=== PATIENT | female | born 1930 | race Caucasian/White ===

== ENCOUNTER → 2017-03-17 | Outpatient (CLI) | payer OTHER ==
[~2017-03-17] MED LIST: BROM0.0911 OPR; CHOL20009 PO; DTRSR4 PO; ESCI1TAB10 PO; LORA-741 PO; NRN600 PO; PARO20TA PO; PRED1SUS OPR; PRLSR20 PO; SIMV20TA2 PO; TRAZ100T29 PO; TRAZ50TA35 PO
[2017-03-17 17:52] LABS: HEMATOCRIT 47.8 % (37-47); MEAN CELL VOLUME 93.5 fL (80-100); MEAN CORPUSCULAR HEMOGLOBIN 32.3 pg (25-34); MEAN CORPUSCULAR HGB CONC 34.5 g/dl (32-36); MEAN PLATELET VOLUME 9.9 fL (7.4-10.4); PLATELET COUNT 200 K/uL (130-400); RED BLOOD COUNT 5.11 M/uL (4.2-5.4); WHITE BLOOD COUNT 8.02 K/uL (4.8-10.8)
[2017-03-17 17:59] LABS: URINE APPEARANCE TURBID (CLEAR); URINE BILIRUBIN NEG (NEG); URINE COLOR YELLOW; URINE EPITHELIAL CELL AUTO >30 /lpf (0-5); URINE NITRITE NEG (NEG); URINE PH 5.5 (4.5-7.5); URINE SPECIFIC GRAVITY 1.021 (1.000-1.030); UROBILINOGEN NEG (NEG)
[2017-03-17 18:05] LABS: MANUAL MICROSCOPIC REQUIRED? NO; REVIEW REQ? YES
[2017-03-17 18:13] LABS: BLOOD UREA NITROGEN 29 mg/dl (7-18); BUN/CREATININE RATIO 19.6 (10-20); CALCIUM 9.2 mg/dl (8.5-10.1); CARBON DIOXIDE 29 mmol/L (21-32); CHLORIDE 106 mmol/L (98-107); GLUCOSE 112 mg/dl (70-99); POTASSIUM 4.7 mmol/L (3.5-5.1); SODIUM 139 mmol/L (136-145)
[2017-03-17 18:33] LABS: URINE PROTIEN/CREAT RATIO 0.1 (0-0.2)
== END | disposition home or self-care (01) ==
LOC: C.LABMFLN 11:21
PROVIDERS: ATTEND Internal Medicine Nephrology
DX: I10 Essential (primary) hypertension (principal); N18.3 Chronic kidney disease, stage 3 (moderate); N25.81 Secondary hyperparathyroidism of renal origin; E55.9 Vitamin D deficiency, unspecified

== ENCOUNTER → 2017-05-17 | Day surgery (SDC) | payer OTHER ==
[2017-04-21 13:23] VITALS: Ht 162.6 cm; Wt 84.1 kg
[~2017-05-17] VITALS: Ht 162.6 cm; Wt 84.1 kg
[~2017-05-17] MED LIST changes: +ACETAMINOPHEN 325 MG TAB PO PRN; +ATROPINE SULFATE 0.1 MG/ML 5ML SYR IV PRN; +BRIMONIDINE TART 0.2% OP SOLN PER DROP CHARGE ONE; +EpINEphrine INJ 1MG/ML AMP 1 MG/ML AMP ONE; +LACTATED RINGER'S 1000ML 500 ML IV SCH; +LIDOCAINE 4% OP SOLN DROP CHARGE ONE; +LIDOCAINE 4% OP SOLN DROP CHARGE OPR SCH; +LIDOCAINE HCL 1% MPF 2 ML VIAL ONE; -LORA-741 PO; +MIDAZOLAM HCL 1 MG/ML 2ML VIAL ONE; +MOXIFLOXACIN OPH SOLN PER DROP CHARGE ONE; -PARO20TA PO; +POVIDONE-IODINE OP SOLN 30 ML BTL ONE; +PROPARACAINE 0.5% OP SOLN PER DROP CHARGE OPR SCH; -SIMV20TA2 PO; +TOBRAMYCIN/DEXAMETHASONE OPH OINT PER APPLN CHARGE ONE
[2017-05-17] MEDS: PHENYLEPHRINE HCL 2.5% OP SOLN PER DROP CHARGE OPR SCH ×2 (06:51→06:57)
--- NOTE | 2017-05-17 06:51 | History & Physical Bridge - SC ---
H&P Re-Evaluation Bridge Note: I have examined the patient, reviewed the History & Physical and in the interval since the performance of the History & Physical I have noted the following changes of clinical significance: No changes noted
[2017-05-17] MEDS: TROPICAMIDE 1% OP SOLN PER DROP CHARGE OPR SCH ×2 (06:52→06:57)
[2017-05-17] MEDS: CYCLOPENTOLATE HCL 1% OP SOLN PER DROP CHARGE OPR SCH ×2 (06:53→06:58)
[2017-05-17] MEDS: KETOROLAC 0.5% OP SOLN PER DROP CHARGE OPR SCH ×2 (06:54→06:59)
[2017-05-17] MEDS: MOXIFLOXACIN OPH SOLN PER DROP CHARGE OPR SCH ×2 (06:55→07:05)
--- NOTE | 2017-05-17 08:28 | Discharge Instructions-SurgCtr ---
Discharge Instructions Date of Service May 17, 2017. Visit Reason for Visit: Cataract Right Eye Discharge Discharge Diagnosis / Problem: cataract right eye Discharge Goals Goal(s): Improve function Activity Recommendations Activity Limitations: per Instructions/Follow-up section Lifting Limitations: no more than 5 pounds Anesthesia . Post Anesthesia Instructions: If you have had General Anesthesia or IV Sedation: * Do not drive today. * Resume driving when surgeon permits. * Do not make important decisions or sign legal documents today. * Call surgeon for: 1. Temperature elevations greater than 101 degrees F. 2. Uncontrollable pain. 3. Excessive bleeding. 4. Persistent nausea and vomiting. 5. Medication intolerance (nausea, vomiting or rash). * For nausea and vomiting use only clear liquids such as: tea, soda, bouillon until nausea subsides, then gradually increase diet as tolerated. * If you have any concerns or questions, call your surgeon's office. If physician is unavailable and it is an emergency, call 911 or go to the nearest emergency room. . Instructions / Follow-Up Instructions / Follow-Up ACTIVITY RECOMMENDATIONS: * Light activities * You may walk outside, read, watch television. * Mild irritation and blurred vision are common for the first few days, redness around the white part of the eye is common. MEDICATIONS: Resume previous medications unless instructed otherwise by your surgeon. Eye drops (today and tomorrow): Cipro - one drop in operative eye every 2 hours while awake Prednisolone 1% - one drop in operative eye every 2 hours while awake Bromfenac - one drop in operative eye once daily SPECIAL CARE INSTRUCTIONS: * If any problems or concerns, please call Dr. Ch's office at . * Keep plastic shield taped over eye to sleep at night. * Keep plastic shield taped over eye except to administer eye drops. * Keep plastic shield on until office visit the following day. FOLLOW UP VISIT: Follow-up with Dr. Ch in the [place] office as scheduled. If not already scheduled, please call the office at . Diet Recommendations Home Diet: resume previous diet Procedures Procedures Performed: Right Eye Cataract Phacoemulsification With Intraocular Lens Implant Pending Studies Studies pending at discharge: no Medical Emergencies . Who to Call and When: Medical Emergencies: If at any time you feel your situation is an emergency, please call 911 immediately. . Non-Emergent Contact Non-Emergency issues call your: Parallel Computing Software Engineer . . "Provider Documentation" section prepared by Kev Ch. .
--- NOTE | 2017-05-17 08:33 | [facility] Operative Report ---
Operative Report Operative Date May 17, 2017. Pre-Operative Diagnosis Right Eye Cataract Post-Operative Diagnosis Same Procedure(s) Performed Right Eye Cataract Phacoemulsification With Intraocular Lens Implant Surgeon Dr. Ch Production Control Expediter Surgeon(s) None Estimated Blood Loss None Findings cataract with phacodenesis/ pseudoexfoliation right eye Specimens None Drains none Anesthesia local with sedation Complication(s) None Disposition Recovery Room / PACU Implants B&L LI61AO 21.0 and ULYSSES [id number] CTR Indications decreased vision right eye Description of Procedure After informed consent was obtained in the holding area the patient was wheeled back to the operating room where cardiac monitoring leads and oxygen by nasal cannula was administered by Anesthesia. Gentle IV sedation was given, and the patient's right eye was prepped and draped in usual sterile fashion. A wire lid speculum was placed into the right eye and the operating microscope was swung into position. Using 0.12 forceps and a Supersharp blade a paracentesis port was made 3 o'clock hours away from the 9 o'clock position of the patient's right eye. 1% non-preserved Lidocaine was then injected into the anterior chamber for anesthesia. A 2.2 mm keratotome blade was then used to make a shelved clear corneal incision at the 9 o'clock position of the right eye. Amvisc was injected into the anterior chamber and a cystotome and Utrata forceps were used to perform a curvilinear capsulorrhexis. Phacodenesis most severe, between the 2 and 6 o'clock position was noted. BSS on a hydrodissection cannula was used to hydrodissect the lens nucleus away from the capsular bag. The phacoemulsification handpiece was then used in a stop and chop fashion to remove the lens nucleus. The irrigation and aspiration handpiece was then attempted to remove the residual cortical material. Phacodenesis was too severe to allow full cortical cleanup. Amvisc was injected into the capsular bag and anterior chamber and an ULYSSES [id number] CTR was injected into the bag to help stabilize it. A Bausch & Lomb LI61AO 21.0 Diopter intraocular lens was injected into the sulcus with the optic being captured by the anterior capsular opening. Irrigation and aspiration handpiece was used to remove the residual viscoelastic material. The wounds were hydrated and noted to be watertight. The wire lid speculum was removed from the eye. Vigamox, Brimonidine, and TobraDex ointment were placed on the eye and it was shielded. It should be noted that EndoCoat was used extensively during the case to protect the cornea endothelium. DISPOSITION: The patient tolerated the procedure well and was wheeled to the post anesthesia care unit in stable condition. I attest to the content of the Intraoperative Record and any orders documented therein. Any exceptions are noted below. I attest to the content of the Intraoperative Record and any orders documented therein. Any exceptions are noted below.
--- NOTE | 2017-05-17 08:56 | Anesthesia Progress Nt - [facility] ---
Anesthesia Post Op Note Date & Time May 17, 2017 at 08:56 Vital Signs Pain Intensity: 0 Vital Signs Past 12 Hours Date Time Temp Pulse Resp B/P (MAP) Pulse Ox O2 Delivery O2 Flow Rate FiO2 05/17/17 08:28 36.1 80 16 152/79 (103) 95 Room Air 05/17/17 06:42 36.5 81 16 130/79 (96) 94 Room Air Notes Mental Status: alert / awake / arousable, participated in evaluation Pt Amnestic to Procedure: Yes Nausea / Vomiting: adequately controlled Pain: adequately controlled Airway Patency, RR, SpO2: stable & adequate BP & HR: stable & adequate Hydration State: stable & adequate Anesthetic Complications: no major complications apparent
[2017-05-17 08:58] VITALS: BP 145/80; PULSE 80; O2SAT 94
== END | disposition home or self-care (01) ==
LOC: X.SURG 06:27
PROVIDERS: ATTEND Ophthalmology
DX: H25.11 Age-related nuclear cataract, right eye (principal); F17.210 Nicotine dependence, cigarettes, uncomplicated; Z79.899 Other long term (current) drug therapy

== ENCOUNTER → 2017-05-31 | Day surgery (SDC) | payer OTHER ==
[2017-05-28 14:22] VITALS: Ht 162.6 cm; Wt 84.1 kg
[~2017-05-31] VITALS: Ht 162.6 cm; Wt 84.1 kg
[~2017-05-31] MED LIST changes: +500ML BSS 0.3ML EPI 1:1000PF IRRIG ONE; +AMVISC PLUS 0.8ML SYRINGE INT OCU ONE; +BSS FLUSH ONE; +ENDOCOAT 0.85ML SYRINGE INT OCU ONE; +EpHEDrine SULFATE INJ 50 MG/ML AMP IV PRN; +LIDOCAINE 4% OP SOLN DROP CHARGE OPL SCH; -LIDOCAINE 4% OP SOLN DROP CHARGE OPR SCH; +ONDANSETRON INJ 2 MG/ML 2 ML VIAL IV PRN; +PROPARACAINE 0.5% OP SOLN PER DROP CHARGE OPL SCH; -PROPARACAINE 0.5% OP SOLN PER DROP CHARGE OPR SCH
[2017-05-31] MEDS: PHENYLEPHRINE HCL 2.5% OP SOLN PER DROP CHARGE OPL SCH ×2 (09:28→09:33)
[2017-05-31] MEDS: TROPICAMIDE 1% OP SOLN PER DROP CHARGE OPL SCH ×2 (09:29→09:34)
[2017-05-31] MEDS: CYCLOPENTOLATE HCL 1% OP SOLN PER DROP CHARGE OPL SCH ×2 (09:30→09:35)
[2017-05-31] MEDS: KETOROLAC 0.5% OP SOLN PER DROP CHARGE OPL SCH ×2 (09:30→09:35)
[2017-05-31] MEDS: MOXIFLOXACIN OPH SOLN PER DROP CHARGE OPL SCH ×2 (09:31→09:40)
--- NOTE | 2017-05-31 10:54 | Discharge Instructions-SurgCtr ---
Discharge Instructions Date of Service May 31, 2017. Visit Reason for Visit: Cataract Left Eye Discharge Discharge Diagnosis / Problem: cataract left eye Discharge Goals Goal(s): Improve function Activity Recommendations Activity Limitations: per Instructions/Follow-up section Lifting Limitations: no more than 5 pounds Anesthesia . Post Anesthesia Instructions: If you have had General Anesthesia or IV Sedation: * Do not drive today. * Resume driving when surgeon permits. * Do not make important decisions or sign legal documents today. * Call surgeon for: 1. Temperature elevations greater than 101 degrees F. 2. Uncontrollable pain. 3. Excessive bleeding. 4. Persistent nausea and vomiting. 5. Medication intolerance (nausea, vomiting or rash). * For nausea and vomiting use only clear liquids such as: tea, soda, bouillon until nausea subsides, then gradually increase diet as tolerated. * If you have any concerns or questions, call your surgeon's office. If physician is unavailable and it is an emergency, call 911 or go to the nearest emergency room. . Instructions / Follow-Up Instructions / Follow-Up ACTIVITY RECOMMENDATIONS: * Light activities * You may walk outside, read, watch television. * Mild irritation and blurred vision are common for the first few days, redness around the white part of the eye is common. MEDICATIONS: Resume previous medications unless instructed otherwise by your surgeon. Eye drops (today and tomorrow): Cipro - one drop in operative eye every 2 hours while awake Prednisolone 1% - one drop in operative eye every 2 hours while awake Bromfenac - one drop in operative eye once daily SPECIAL CARE INSTRUCTIONS: * If any problems or concerns, please call Dr. Ch's office at . * Keep plastic shield taped over eye to sleep at night. * Keep plastic shield taped over eye except to administer eye drops. * Keep plastic shield on until office visit the following day. FOLLOW UP VISIT: Follow-up with Dr. Ch in the [place] office as scheduled. If not already scheduled, please call the office at . Diet Recommendations Home Diet: resume previous diet Procedures Procedures Performed: Left Cataract Phacoemulsification With Intraocular Lens Implant Pending Studies Studies pending at discharge: no Medical Emergencies . Who to Call and When: Medical Emergencies: If at any time you feel your situation is an emergency, please call 911 immediately. . Non-Emergent Contact Non-Emergency issues call your: Technical Services Assistant . . "Provider Documentation" section prepared by Kev Ch. .
[2017-05-31 10:55] VITALS: TEMP 36.3
--- NOTE | 2017-05-31 10:55 | [facility] Operative Report ---
Operative Report Operative Date May 31, 2017. Pre-Operative Diagnosis Left Eye Cataract Post-Operative Diagnosis Same Procedure(s) Performed Left Cataract Phacoemulsification With Intraocular Lens Implant Surgeon Dr Ch Superintendent Board Mill Surgeon(s) None Estimated Blood Loss 0ml Findings cataract left eye Fluids (cc crystalloids) see anesthesia record Specimens None Drains none Anesthesia local with sedation Complication(s) None Disposition Recovery Room / PACU Implants [id number] 22.5 Indications decreased vision left eye Description of Procedure After informed consent was obtained in the holding area the patient was wheeled back to the operating room where cardiac monitoring leads and oxygen by nasal cannula was administered by Anesthesia. Gentle IV sedation was given, and the patient's left eye was prepped and draped in usual sterile fashion. A wire lid speculum was placed into the left eye and the operating microscope was swung into position. Using 0.12 forceps and a Supersharp blade a paracentesis port was made 3 o'clock hours away from the 3 o'clock position of the patient's left eye. 1% non-preserved Lidocaine was then injected into the anterior chamber for anesthesia. A 2.2 mm keratotome blade was then used to make a shelved clear corneal incision at the 3 o'clock position of the left eye. Amvisc was injected into the anterior chamber and a cystotome and Utrata forceps were used to perform a curvilinear capsulorrhexis. BSS on a hydrodissection cannula was used to hydrodissect the lens nucleus away from the capsular bag. The phacoemulsification handpiece was then used in a stop and chop fashion to remove the lens nucleus. The irrigation and aspiration handpiece was then used to remove the residual cortical material. Amvisc was injected into the capsular bag and anterior chamber and a Bausch & Lomb MX60 22.5 Diopter intraocular lens was injected into the capsular bag. Irrigation and aspiration handpiece was used to remove the residual viscoelastic material. The wounds were hydrated and noted to be watertight. The wire lid speculum was removed from the eye. Vigamox, Brimonidine, and TobraDex ointment were placed on the eye and it was shielded. It should be noted that EndoCoat was used extensively during the case to protect the cornea endothelium. DISPOSITION: The patient tolerated the procedure well and was wheeled to the post anesthesia care unit in stable condition. I attest to the content of the Intraoperative Record and any orders documented therein. Any exceptions are noted below. I attest to the content of the Intraoperative Record and any orders documented therein. Any exceptions are noted below.
[2017-05-31 11:22] VITALS: BP 129/83; PULSE 70; O2SAT 96
--- NOTE | 2017-05-31 11:29 | Anesthesia Progress Nt - [facility] ---
Anesthesia Post Op Note Date & Time May 31, 2017 at 11:28 Vital Signs Pain Intensity: 0 Vital Signs Past 12 Hours Date Time Temp Pulse Resp B/P (MAP) Pulse Ox O2 Delivery O2 Flow Rate FiO2 05/31/17 11:22 70 16 129/83 (98) 96 Room Air 05/31/17 10:55 36.3 78 16 120/79 (93) 96 Room Air 05/31/17 09:15 36.3 76 22 124/85 (98) 92 Room Air Notes Mental Status: alert / awake / arousable, participated in evaluation Pt Amnestic to Procedure: Yes Nausea / Vomiting: adequately controlled Pain: adequately controlled Airway Patency, RR, SpO2: stable & adequate BP & HR: stable & adequate Hydration State: stable & adequate Anesthetic Complications: no major complications apparent
== END | disposition home or self-care (01) ==
LOC: X.SURG 08:48
PROVIDERS: ATTEND Ophthalmology
DX: H25.12 Age-related nuclear cataract, left eye (principal); M19.90 Unspecified osteoarthritis, unspecified site; Z87.891 Personal history of nicotine dependence; N18.9 Chronic kidney disease, unspecified; K25.9 Gastric ulcer, unspecified as acute or chronic, without hemorrhage or perforation

== ENCOUNTER → 2017-09-20 | Outpatient (CLI) | payer OTHER ==
[~2017-09-20] MED LIST changes: -500ML BSS 0.3ML EPI 1:1000PF IRRIG ONE; -ACETAMINOPHEN 325 MG TAB PO PRN; -AMVISC PLUS 0.8ML SYRINGE INT OCU ONE; -ATROPINE SULFATE 0.1 MG/ML 5ML SYR IV PRN; -BRIMONIDINE TART 0.2% OP SOLN PER DROP CHARGE ONE; -BSS FLUSH ONE; -ENDOCOAT 0.85ML SYRINGE INT OCU ONE; -EpHEDrine SULFATE INJ 50 MG/ML AMP IV PRN; -EpINEphrine INJ 1MG/ML AMP 1 MG/ML AMP ONE; -LACTATED RINGER'S 1000ML 500 ML IV SCH; -LIDOCAINE 4% OP SOLN DROP CHARGE ONE; -LIDOCAINE 4% OP SOLN DROP CHARGE OPL SCH; -LIDOCAINE HCL 1% MPF 2 ML VIAL ONE; -MIDAZOLAM HCL 1 MG/ML 2ML VIAL ONE; -MOXIFLOXACIN OPH SOLN PER DROP CHARGE ONE; -ONDANSETRON INJ 2 MG/ML 2 ML VIAL IV PRN; -POVIDONE-IODINE OP SOLN 30 ML BTL ONE; -PROPARACAINE 0.5% OP SOLN PER DROP CHARGE OPL SCH; -TOBRAMYCIN/DEXAMETHASONE OPH OINT PER APPLN CHARGE ONE
[2017-09-20 18:06] LABS: MEAN CELL VOLUME 91.8 fL (80-100); MEAN CORPUSCULAR HEMOGLOBIN 31.7 pg (25-34); MEAN CORPUSCULAR HGB CONC 34.6 g/dl (32-36); PLATELET COUNT 161 K/uL (130-400); RED BLOOD COUNT 5.23 M/uL (4.2-5.4); WHITE BLOOD COUNT 6.98 K/uL (4.8-10.8)
[2017-09-20 18:12] LABS: BLOOD UREA NITROGEN 24 mg/dl (7-18); BUN/CREATININE RATIO 14.5 (10-20); CALCIUM 8.9 mg/dl (8.5-10.1); CARBON DIOXIDE 28 mmol/L (21-32); CHLORIDE 104 mmol/L (98-107); CREATININE 1.63 mg/dl (0.60-1.20); GLUCOSE 117 mg/dl (70-99); PHOSPHORUS 3.1 mg/dl (2.5-4.9); POTASSIUM 4.5 mmol/L (3.5-5.1); SODIUM 141 mmol/L (136-145)
== END | disposition home or self-care (01) ==
LOC: C.LABMFLN 11:28
PROVIDERS: ATTEND Internal Medicine Nephrology
DX: I12.9 Hypertensive chronic kidney disease with stage 1 through stage 4 chronic kidney disease, or unspecified chronic kidney disease (principal); N18.3 Chronic kidney disease, stage 3 (moderate); N25.81 Secondary hyperparathyroidism of renal origin; E55.9 Vitamin D deficiency, unspecified

== ENCOUNTER → 2017-09-21 | Outpatient (CLI) | payer OTHER ==
[2017-09-21 18:04] LABS: URINE APPEARANCE CLOUDY (CLEAR); URINE BILIRUBIN NEG (NEG); URINE COLOR YELLOW; URINE NITRITE NEG (NEG); URINE SPECIFIC GRAVITY 1.018 (1.000-1.030); UROBILINOGEN NEG (NEG)
[2017-09-21 18:12] LABS: URINE PROTIEN/CREAT RATIO 0.2 (0-0.2); URINE TOTAL PROTEIN 17.3 mg/dl (0-11.9)
[2017-09-21 18:14] LABS: MANUAL MICROSCOPIC REQUIRED? NO; REVIEW REQ? NO
== END | disposition home or self-care (01) ==
LOC: C.LABMFLN 16:49
PROVIDERS: ATTEND Internal Medicine Nephrology
DX: I12.9 Hypertensive chronic kidney disease with stage 1 through stage 4 chronic kidney disease, or unspecified chronic kidney disease (principal); N18.3 Chronic kidney disease, stage 3 (moderate); N25.81 Secondary hyperparathyroidism of renal origin; E55.9 Vitamin D deficiency, unspecified

== ENCOUNTER → 2017-10-11 | Outpatient (CLI) | payer OTHER ==
[2017-10-11 18:40] LABS: CHOLESTEROL/HDL RATIO 9.5
== END | disposition home or self-care (01) ==
LOC: C.LABMFLN 14:03
PROVIDERS: ATTEND Physician Assistant
DX: E78.5 Hyperlipidemia, unspecified (principal)

== ENCOUNTER → 2018-01-31 | Outpatient (CLI) | payer OTHER | END | disposition home or self-care (01) | LOC: C.LABMFLN 12:26 | PROVIDERS: ATTEND Physician Assistant | DX: R39.9 Unspecified symptoms and signs involving the genitourinary system (principal) ==

== ENCOUNTER → 2018-02-07 | Outpatient (CLI) | payer OTHER ==
[2018-02-07 18:04] LABS: ALBUMIN 3.2 gm/dl (3.4-5.0); TOTAL PROTEIN 6.9 gm/dl (6.4-8.2)
== END | disposition home or self-care (01) ==
LOC: C.LABMFLN 12:04
PROVIDERS: ATTEND Physician Assistant
DX: E78.5 Hyperlipidemia, unspecified (principal)

== ENCOUNTER → 2018-03-14 | Outpatient (CLI) | payer OTHER ==
[2018-03-14 18:14] LABS: HEMATOCRIT 43.1 % (37-47); HEMOGLOBIN 14.9 g/dL (12.0-16.0); MEAN CELL VOLUME 90.7 fL (80-100); MEAN CORPUSCULAR HEMOGLOBIN 31.4 pg (25-34); MEAN CORPUSCULAR HGB CONC 34.6 g/dl (32-36); MEAN PLATELET VOLUME 10.2 fL (7.4-10.4); PLATELET COUNT 144 K/uL (130-400); RED CELL DISTRIBUTION WIDTH CV 13.5 % (11.5-14.5); RED CELL DISTRIBUTION WIDTH SD 44.8 fL (36.4-46.3); WHITE BLOOD COUNT 6.53 K/uL (4.8-10.8)
[2018-03-14 19:28] LABS: ALBUMIN 3.4 gm/dl (3.4-5.0); BLOOD UREA NITROGEN 28 mg/dl (7-18); CALCIUM 8.5 mg/dl (8.5-10.1); CARBON DIOXIDE 26 mmol/L (21-32); CREATININE 1.68 mg/dl (0.60-1.20); GLUCOSE 100 mg/dl (70-99); PHOSPHORUS 3.4 mg/dl (2.5-4.9); POTASSIUM 4.6 mmol/L (3.5-5.1); SODIUM 138 mmol/L (136-145)
== END | disposition home or self-care (01) ==
LOC: C.LABMFLN 11:56
PROVIDERS: ATTEND Internal Medicine Nephrology
DX: I10 Essential (primary) hypertension (principal); N18.3 Chronic kidney disease, stage 3 (moderate); N25.81 Secondary hyperparathyroidism of renal origin; E55.9 Vitamin D deficiency, unspecified

== ENCOUNTER 2019-11-29 18:44 | Inpatient (IN) ==
[2019-11-29] MEDS ORDERED: ONDANSETRON INJ 2 MG/ML 2 ML VIAL IV PRN (18:48)
[2019-11-29] MEDS ORDERED: ACETAMINOPHEN 325 MG TAB PO PRN (18:48)
[2019-11-29] MEDS ORDERED: POLYETHYLENE (MIRALAX) 17 GM PACK PO PRN (18:48)
[2019-11-29] MEDS ORDERED: TROLAMINE SALICYLATE 10% CRM 255 APPLN/85 GM TUBE EXT PRN (19:40)
[2019-11-29 19:53] LABS: Basophils # (auto) 0.02 K/uL (0-0.2); Basophils % (auto) 0.3 %; Eosinophils % (auto) 1.3 %; Hematocrit (blood only) 41.8 % (37-47); Hemoglobin 14.7 g/dL (12.0-16.0); Immature Granulocytes # (auto) 0.02 K/uL (0.00-0.02); Immature Granulocytes % (auto) 0.3 %; Lymphocytes # (auto) 0.29 K/uL (1.2-3.4); Lymphocytes % (auto) 3.8 %; Mean Corpuscular Hemoglobin 31.7 pg (25-34); Mean Corpuscular Hgb Conc 35.2 g/dL (32-36); Mean Corpuscular Volume 90.3 fL (80-100); Mean Platelet Volume 10.4 fL (7.4-10.4); Monocytes # (auto) 0.34 K/uL (0.11-0.59); Monocytes % (auto) 4.5 %; Neutrophils # (auto) 6.79 K/uL (1.4-6.5); Neutrophils % (auto) 89.8 %; Platelet Count 117 K/uL (130-400); RDW Coefficient of Variation 13.6 % (11.5-14.5); RDW Standard Deviation 44.6 fL (36.4-46.3); Red Blood Count 4.63 M/uL (4.2-5.4); White Blood Count 7.56 K/uL (4.8-10.8)
[2019-11-29 20:04] LABS: INR 1.3 (0.9-1.1); Partial Thromboplastin Ratio 1.1; Partial Thromboplastin Time 28.8 Seconds (21.0-31.0)
[2019-11-29 20:11] LABS: Alanine Aminotransferase 73 U/L (12-78); Albumin Level 3.1 gm/dl (3.4-5.0); Aspartate Aminotransferase 77 U/L (15-37); BUN Creatinine Ratio 14.2 (10-20); Blood Urea Nitrogen 20 mg/dl (7-18); Calcium 8.9 mg/dl (8.5-10.1); Carbon Dioxide 27 mmol/L (21-32); Chloride 106 mmol/L (98-107); Est GFR (African American) 39.1; Est GFR (Non-African American) 33.7; Glucose 129 mg/dl (70-99); Potassium 2.8 mmol/L (3.5-5.1); Sodium 139 mmol/L (136-145)
--- NOTE | 2019-11-29 20:13 | History & Physical Report ---
Date of Service November 29, 2019 Assessment & Plan (1) Biliary stricture: (2) Hyperbilirubinemia: (3) History of biliary stent insertion: (4) History of cholangitis: This is an 89-year-old female who has significant PMH of CKD stage , GERD, depression, anxiety, hyperbilirubinemia, biliary obstruction status post stenting who presents to [facility] as a direct admission from [facility] due to concern for restenosis of biliary stricture and planned ERCP in a.m. Per records reviewed patient last ERCP on 10/07/2019 in which she was diagnosed with acute cholangitis. Findings on ERCP consistent with 1 totally occluded stent from biliary tree, filling defect consistent with stone and sludge, remodeling of the previously noted biliary stricture, 2 biliary stents placed. She was to undergo repeat ERCP on 12/07/2019 to remove stents, but given worsening of symptoms prompted tomorrow. Of further significance initially dx with mass obstructing ERCP in 06/2019 in which initial stents were placed. Attempt to biopsy mass were unsuccessful. Evaluated [facility] and told not surgical candidate due to frail health. Pt directly admitted to PCU [facility] consulted - discussed with Dr. Costa NPO after midnight hold plavix CBC, CMP, Blood cultures, lactic acid, coags pending pt does nto appear septic, she is hemodynamically stable and afebrile No need for antibiotics at this time (5) Hypokalemia: K 2.8 give 40meq KCL x 1 now Krider 10meq x 2 repeat in a.m. (6) Idiopathic hypotension: Continue Florinef (7) CKD (chronic kidney disease) stage 4, GFR 15-29 ml/min: baseline Cr 1.5-1.7 follows [facility] nephro Dr. Abbott (8) Hyperlipidemia: Hold statin for now Await LFTs (9) Acid reflux disease: Continue PPI (10) Depression with anxiety: Continue escitalopram (11) Peripheral neuropathy: Continue gabapentin (12) Leg pain, left: L knee pain add bengay cream no warmth or redness likely arthritic in nature APAP prn (13) Tobacco abuse: pt declines nicotine patch encourage smoking cessation (14) DVT prophylaxis: SCDS/TEDS Disposition: admit to PCU Follow up: PCP Lazara Plummer PA-C upon discharge Pt was seen and examined in collaboration with Dr. Cheek, please see addendum History of Present Illness Chief Complaint: Abdominal pain, nausea and weakness x 1 day. Primary Care Provider: Lazara Plummer PA-C This is an 89-year-old female who has significant PMH of CKD stage IIIb-, GERD, depression, anxiety, hyperbilirubinemia, biliary obstruction status post stenting who presents to [facility] as a direct admission from [facility] due to concern for restenosis of biliary stricture and planned ERCP in a.m. Daughter was at bedside. Yesterday she developed abdominal pain, left upper quadrant and right upper quadrant, constant that resolved on own. Today she was nauseous, weak and daughter felt like she was starting to turn, "yellow," therefore, she called Dr. Costa. Patient was planned to have ERCP with stent exchange at end of month, but given current complaints and concerns he wanted patient directly admitted for ERCP in a.m. Currently she is lying in bed and complains of left knee pain" jumping," that is been off and on for years. She no longer has abdominal pain or nausea. She does elicit to a dry cough that is started today. She denies any fever, chills, sweats, headache, lightheadedness, dizziness, chest pain, shortness of breath, FLOREZ, palpitations, emesis, abdominal pain, diarrhea, change in bowel or urinary habits. She is currently a 1 pack/day smoker. She lives alone. Overall appetite has been diminished and 5lb weight loss in past month has been noted. Allergies Allergy/AdvReac Type Severity Reaction Status Date / Time cephalexin [From Keflex] Allergy POSSIBLE Verified 11/27/19 12:38 RASH aspirin AdvReac Unknown HX OF ULCER Verified 11/27/19 12:38 Home Medications Home Medications Medication Instructions Recorded Confirmed Type clopidogrel 75 mg tablet 75 mg PO DAILY 08/02/19 11/29/19 History gabapentin 100 mg capsule 100 mg PO TID #90 cap 08/14/19 11/29/19 Rx melatonin 5 mg capsule 10 mg PO HS PRN #30 cap 08/14/19 11/29/19 Rx atorvastatin 40 mg PO DAILY 11/29/19 11/29/19 History cholecalciferol (vitamin D3) 2,000 unit PO DAILY 11/29/19 11/29/19 History escitalopram oxalate 10 mg PO DAILY 11/29/19 11/29/19 History fludrocortisone 0.1 mg PO DAILY 11/29/19 11/29/19 History omeprazole 20 mg PO DAILY 11/29/19 11/29/19 History ursodiol 500 mg PO BID 11/29/19 11/29/19 History Past Med/Surg History Medical History Acid reflux disease (Acute) Bilateral leg weakness (Acute) 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) Depression with anxiety (Acute) Dysphagia (Acute) Hyperlipidemia (Acute) Hypertension (Acute) Insomnia (Acute) Jaundice (Inactive) Low back pain (Acute) Memory impairment (Acute) Peripheral neuropathy (Acute) Postmenopausal osteoporosis (Acute) Secondary hyperparathyroidism (Acute) Urinary incontinence (Acute) Vitamin D deficiency (Acute) Surgical History History of ankle surgery repair ankle fx History of back surgery x 5 History of laparoscopic cholecystectomy S/P ERCP 08/16/19 S/P lumbar spinal fusion (Resolved) Family History (Updated 11/29/19 @ 19:57 by Gini Burrows PA-C) Sister Cancer Social History Preferred Language: Hungarian Communication Ability: Effective marital status: / Current Living Situation: Alone Smoking Status: Current every day smoker packs per day: 1 ; Years Smoked: 60 ; Tobacco Cessation Education Requested by Patient: No Hx Alcohol Use: No Hx Substance Use: No Review of Systems Review of Systems: All systems reviewed & are unremarkable except as noted in HPI & below Physical Exam Physical Exam: please refer to Dr. Cheek addendum for physical exam findings Results & Data Laboratory Results Short CBC 11/29/19 Range/Units 19:24 WBC 7.56 (4.8-10.8) K/uL Hgb 14.7 (12.0-16.0) g/dL Hct 41.8 (37-47) % Plt Count 117 L (130-400) K/uL Code Status & VTE Plan Code Status Full Code VTE Prophylaxis Plan VTE Prophylaxis will be ordered: Yes Reason for no VTE drug order: Contraindicated Supervising Physician Co-Signing Physician Notes 89 yr old woman with PMH of CKD stage , GERD, depression, anxiety, hyperbilirubinemia, biliary obstruction status post stenting who presents to [facility] as a direct admission from [facility] due to concern for restenosis of biliary stricture and planned ERCP in a.m History notable for increased fatigue today, abdominal pain yesterday that has resolved, nausea, left knee pain, dry cough associated with sinus congestion. On physical exam General: Elderly woman in no distress Eyes: PERRL, conjunctivae normal, not pale, + icteric sclerae, EOM intact bilaterally ENMT: External ear and nose normal, oropharynx normal Neck: Normal visual inspection, no tracheal deviation, no swelling noted Respiratory: Normal respiratory effort, no respiratory distress, lungs clear to auscultation, no crackles and no wheezes Cardiovascular: Pulse is RRR. S1 S2 no pedal edema Chest (Breasts): Chest: normal inspection of chest Gastrointestinal (Abdomen): Abdomen is not distended, soft, non-tender to palpation, no guarding, no palpable hepatosplenomegaly, normal bowel sounds Musculoskeletal: No cyanosis or clubbing, all extremities motor strength 5/5, no tenderness on palpation of knees, no differential warmth Genitourinary: No CVA tenderness Skin: No rash noted on gross inspection, No ulcers noted Neurologic: Alert and oriented x 3, No focal weakness, sensation grossly intact Psychiatric: Pleasant, euthymic affect, normal judgement No leukocytosis WBC 7.56 INR 1.3 Cr 1.4 at baseline K 2.8 Mg 1.7 Total bilirubin 5.3 ALT 73 AST 77 Alk Phosp 158 No fevers, chills, leukocytosis Hyperbilirubinemia likely occluded stents Get Blood cultures. Hold antibiotics for now NPO PMN for ERCP tomorrow GI consult Hold plavix for procedure Replete hypokalemia and monitor Other plan as detailed by Gini Burrows
[2019-11-29 20:14] LABS: Albumin Globulin Ratio 0.9 (0.9-2); Alkaline Phosphatase 158 U/L (45-117); Bilirubin,Total 5.3 mg/dl (0.2-1); Globulin 3.3 gm/dl (2.5-4.0); Total Protein 6.4 gm/dl (6.4-8.2)
[2019-11-29] MEDS ORDERED: POTASSIUM CHLORIDE 20 MEQ TABCR PO STA (20:14)
[2019-11-29 20:25] LABS: Magnesium 1.7 mg/dl (1.8-2.4)
[2019-11-29] MEDS: POTASSIUM CHLORIDE / WTR 10 MEQ/100 ML PLCT IV SCH ×2 (21:22→22:35)
[2019-11-29] MEDS: GABAPENTIN 100 MG CAP PO SCH (21:22)
[2019-11-29 22:10] LABS: Influenza B virus by PCR Neg for Influ B (Neg)
[2019-11-29] MEDS ORDERED: MAGNESIUM SULFATE / D5W 1 GM/100 ML BAG IV ONE (22:21)
--- NOTE | 2019-11-29 22:23 | XRay Report ---
XR chest 1V portable CLINICAL HISTORY: 89 years-old Female presenting with cough. TECHNIQUE: Portable upright AP view of the chest was obtained. COMPARISON: 10/23/2014. FINDINGS: Atherosclerosis of the aortic arch. Cardiac silhouette borderline enlarged. No focal opacity. No larg e effusion or pneumothorax. External leads project over the right upper quadrant and right lung base. Degenerative changes of the right glenohumeral joint. Osteopenia suspected. Upper abdomen normal. IMPRESSION: 1. Borderline cardiomegaly. No other convincing evidence of acute cardiopulmonary disease. ACT 112: Negative or not required by law. Electronically signed by: Brent Longoria M.D. 11/29/2019 10:22 PM
[2019-11-29] MEDS: [UNRECOGNIZED DRUG - OTHER] SCH (23:53)
[2019-11-30 07:11] LABS: Basophils # (auto) 0.01 K/uL (0-0.2); Basophils % (auto) 0.2 %; Eosinophils # (auto) 0.05 K/uL (0-0.5); Hematocrit (blood only) 38.7 % (37-47); Hemoglobin 13.5 g/dL (12.0-16.0); Immature Granulocytes # (auto) 0.01 K/uL (0.00-0.02); Immature Granulocytes % (auto) 0.2 %; Lymphocytes # (auto) 0.56 K/uL (1.2-3.4); Lymphocytes % (auto) 11.4 %; Mean Corpuscular Hemoglobin 31.6 pg (25-34); Mean Corpuscular Hgb Conc 34.9 g/dL (32-36); Mean Corpuscular Volume 90.6 fL (80-100); Mean Platelet Volume 10.6 fL (7.4-10.4); Monocytes # (auto) 0.39 K/uL (0.11-0.59); Monocytes % (auto) 7.9 %; Neutrophils # (auto) 3.89 K/uL (1.4-6.5); Neutrophils % (auto) 79.3 %; Platelet Count 110 K/uL (130-400); RDW Coefficient of Variation 13.6 % (11.5-14.5); Red Blood Count 4.27 M/uL (4.2-5.4); White Blood Count 4.91 K/uL (4.8-10.8)
[2019-11-30 07:46] LABS: Albumin Level 2.7 gm/dl (3.4-5.0); BUN Creatinine Ratio 14.4 (10-20); Calcium 8.4 mg/dl (8.5-10.1); Creatinine Clr Calc Pharmacy 31.7 ml/min; Est GFR (African American) 46.6; Est GFR (Non-African American) 40.2; Potassium 2.9 mmol/L (3.5-5.1)
[2019-11-30 07:51] LABS: Albumin Globulin Ratio 0.9 (0.9-2); Bilirubin,Total 3.5 mg/dl (0.2-1); Globulin 3.1 gm/dl (2.5-4.0); Total Protein 5.8 gm/dl (6.4-8.2)
--- NOTE | 2019-11-30 09:59 | Gastrointestinal Consultation ---
Date of Consultation November 30, 2019 Assessment & Plan (1) History of cholangitis: 89 year old female admitted w/ concern for cholangitis, plan for ERCP today. Flu positive. NPO ERCP today Continue management per primary service Please see ERCP note for additional findings, plans Thank you for allowing us to participate in the care of this patient. Please call with any acute changes, questions or concerns. Please see addendum below with additional recommendation from my supervising physician. Supervising Physician Co-Signing Physician Notes I performed a history and physical examination of the patient, including specifically on physical exam - soft, nontender abdomen. I have discussed the patient's management with Maricel. Please refer to the nurse practitioner's note for the documented findings and plan of care. 89 yrs old female with jaundice related to occluded biliary stent and biliary stricture, suspect cholangitis, needs ERCP today. Daughter at bedside wants to go for the uncovered metal biliary stent. History of Present Illness Reason for Consultation: ERCP Requesting Physician: Nannette Attending Physician: Yoselyn Brunson MD History of Present Illness 89 year old female directly admitted due to concern for cholangitis, biliary stricture w/ history of CKD stage IIIb-, GERD, depression, anxiety. GI asked to follow - pt was seen and evaluated, chart reviewed. Flu A positive. This AM feels okay. Some fatigue, w/ cough. No abd pain. No dark urine. No light stools. Some nausea. No vomiting. No fever, chills, CP, SOB. LFTs reviewed and slight improvement in TB but persistent LFTs elevation Allergies Allergy/AdvReac Type Severity Reaction Status Date / Time cephalexin [From Keflex] Allergy POSSIBLE Verified 11/27/19 12:38 RASH aspirin AdvReac Unknown HX OF ULCER Verified 11/27/19 12:38 Home Medications Home Medications Medication Instructions Recorded Confirmed Type clopidogrel 75 mg tablet 75 mg PO DAILY 08/02/19 11/29/19 History gabapentin 100 mg capsule 100 mg PO TID #90 cap 08/14/19 11/29/19 Rx melatonin 5 mg capsule 10 mg PO HS PRN #30 cap 08/14/19 11/29/19 Rx atorvastatin 40 mg PO DAILY 11/29/19 11/29/19 History cholecalciferol (vitamin D3) 2,000 unit PO DAILY 11/29/19 11/29/19 History escitalopram oxalate 10 mg PO DAILY 11/29/19 11/29/19 History fludrocortisone 0.1 mg PO DAILY 11/29/19 11/29/19 History omeprazole 20 mg PO DAILY 11/29/19 11/29/19 History ursodiol 500 mg PO BID 11/29/19 11/29/19 History Patient History Medical History Acid reflux disease (Acute) Bilateral leg weakness (Acute) 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) Depression with anxiety (Acute) Dysphagia (Acute) Hyperlipidemia (Acute) Hypertension (Acute) Insomnia (Acute) Jaundice (Inactive) Low back pain (Acute) Memory impairment (Acute) Peripheral neuropathy (Acute) Postmenopausal osteoporosis (Acute) Secondary hyperparathyroidism (Acute) Urinary incontinence (Acute) Vitamin D deficiency (Acute) Surgical History History of ankle surgery repair ankle fx History of back surgery x 5 History of laparoscopic cholecystectomy S/P ERCP 08/16/19 S/P lumbar spinal fusion (Resolved) Family History (Updated 11/29/19 @ 19:57 by Gini Burrows PA-C) Sister Cancer Social History Preferred Language: Romansh Communication Ability: Effective Dra[employer] Engineering Required: No Beliefs That Will Affect Care: None marital status: / Current Living Situation: Alone Current Living Situation Comment: [place] Other Information That Helps Us Care for You: No Feels Safe at Home: Yes Safety Concerns: Feels Safe At This Time Smoking Status: Current every day smoker Tobacco Type: cigarettes ; packs per day: 1 ; Years Smoked: 60 ; Cigarettes Per Day: PACK AND HALF ; Do You Dip or Chew Tobacco: No ; Second Hand Exposure: No ; Tobacco Cessation Education Requested by Patient: No Hx Alcohol Use: No Hx Substance Use: No Review of Systems Constitutional: + fatigue; no fever and no chills Respiratory: no cough and no dyspnea Cardiovascular: no chest pain, no chest pain at rest and no dyspnea Gastrointestinal: no abdominal pain, no nausea, no vomiting, no coffee ground emesis, no blood in stools and no melena Physical Exam Constitutional: well developed and well nourished; no acute distress Neck: trachea midline Respiratory: normal respiratory effort and + cough Cardiovascular: Rate/Rhythm: regular rate and regular rhythm Gastrointestinal (Abdomen): normal bowel sounds, soft, nontender, no hepatosplenomegaly Skin: no rashes, warm and dry Results & Data Vital Signs (Past 12 Hours) Vital Signs Temp Pulse Pulse Resp BP BP Pulse Ox 11/30/19 07:45 36.8 C 78 18 168/81 H 176/76 H 95 11/30/19 05:47 166/86 H 11/30/19 04:32 36.8 C 76 22 171/93 H 96 11/30/19 01:00 88 146/87 H 11/29/19 23:24 37.5 C 91 H 26 H 183/77 H 96 11/29/19 22:54 92 H 11/29/19 22:20 89 11/29/19 22:17 90 Laboratory Results 11/30/19 11/30/19 11/30/19 Range/Units 06:17 06:17 06:17 WBC 4.91 (4.8-10.8) K/uL RBC 4.27 (4.2-5.4) M/uL Hgb 13.5 (12.0-16.0) g/dL Hct 38.7 (37-47) % MCV 90.6 (80-100) fL MCH 31.6 (25-34) pg MCHC 34.9 (32-36) g/dL RDW Std Deviation 45.0 (36.4-46.3) fL RDW Coeff of Anu 13.6 (11.5-14.5) % Plt Count 110 L (130-400) K/uL MPV 10.6 H (7.4-10.4) fL Immature Gran % (Auto) 0.2 % Neut % (Auto) 79.3 % Lymph % (Auto) 11.4 % Kenton % (Auto) 7.9 % Eos % (Auto) 1.0 % Baso % (Auto) 0.2 % Immature Gran # (Auto) 0.01 (0.00-0.02) K/uL Neut # (Auto) 3.89 (1.4-6.5) K/uL Lymph # (Auto) 0.56 L (1.2-3.4) K/uL Kenton # (Auto) 0.39 (0.11-0.59) K/uL Eos # (Auto) 0.05 (0-0.5) K/uL Baso # (Auto) 0.01 (0-0.2) K/uL PT (9.0-12.0) Seconds INR (0.9-1.1) APTT (21.0-31.0) Seconds PTT Ratio Sodium 140 (136-145) mmol/L Potassium 2.9 L (3.5-5.1) mmol/L Chloride 109 H (98-107) mmol/L Carbon Dioxide 26 (21-32) mmol/L Anion Gap 5.0 (3-11) BUN 17 (7-18) mg/dl Creatinine 1.21 H (0.6-1.2) mg/dl Est Cr Clr Drug Dosing 31.7 Est GFR ( Amer) 46.6 Est GFR (Non-Af Amer) 40.2 BUN/Creatinine Ratio 14.4 (10-20) Glucose 86 (70-99) mg/dl Lactate (0.4-2.0) mmol/L Calcium 8.4 L (8.5-10.1) mg/dl Magnesium 2.1 (1.8-2.4) mg/dl Total Bilirubin 3.5 H (0.2-1) mg/dl AST 54 H (15-37) U/L ALT 55 (12-78) U/L Alkaline Phosphatase 174 H (45-117) U/L Total Protein 5.8 L (6.4-8.2) gm/dl Albumin 2.7 L (3.4-5.0) gm/dl Globulin 3.1 (2.5-4.0) gm/dl Albumin/Globulin Ratio 0.9 (0.9-2) Influenza Type A (PCR) (Neg) Influenza Type B (PCR) (Neg) 11/29/19 11/29/19 11/29/19 Range/Units 21:30 19:44 19:24 WBC (4.8-10.8) K/uL RBC (4.2-5.4) M/uL Hgb (12.0-16.0) g/dL Hct (37-47) % MCV (80-100) fL MCH (25-34) pg MCHC (32-36) g/dL RDW Std Deviation (36.4-46.3) fL RDW Coeff of Anu (11.5-14.5) % Plt Count (130-400) K/uL MPV (7.4-10.4) fL Immature Gran % (Auto) % Neut % (Auto) % Lymph % (Auto) % Kenton % (Auto) % Eos % (Auto) % Baso % (Auto) % Immature Gran # (Auto) (0.00-0.02) K/uL Neut # (Auto) (1.4-6.5) K/uL Lymph # (Auto) (1.2-3.4) K/uL Kenton # (Auto) (0.11-0.59) K/uL Eos # (Auto) (0-0.5) K/uL Baso # (Auto) (0-0.2) K/uL PT (9.0-12.0) Seconds INR (0.9-1.1) APTT (21.0-31.0) Seconds PTT Ratio Sodium 139 (136-145) mmol/L Potassium 2.8 L (3.5-5.1) mmol/L Chloride 106 (98-107) mmol/L Carbon Dioxide 27 (21-32) mmol/L Anion Gap 6.0 (3-11) BUN 20 H (7-18) mg/dl Creatinine 1.40 H (0.6-1.2) mg/dl Est Cr Clr Drug Dosing Not Reportable Est GFR ( Amer) 39.1 Est GFR (Non-Af Amer) 33.7 BUN/Creatinine Ratio 14.2 (10-20) Glucose 129 H (70-99) mg/dl Lactate 1.2 (0.4-2.0) mmol/L Calcium 8.9 (8.5-10.1) mg/dl Magnesium 1.7 L (1.8-2.4) mg/dl Total Bilirubin 5.3 H (0.2-1) mg/dl AST 77 H (15-37) U/L ALT 73 (12-78) U/L Alkaline Phosphatase 158 H (45-117) U/L Total Protein 6.4 (6.4-8.2) gm/dl Albumin 3.1 L (3.4-5.0) gm/dl Globulin 3.3 (2.5-4.0) gm/dl Albumin/Globulin Ratio 0.9 (0.9-2) Influenza Type A (PCR) Pos for Influ A A* (Neg) Influenza Type B (PCR) Neg for Influ B (Neg) 11/29/19 11/29/19 Range/Units 19:24 19:24 WBC 7.56 (4.8-10.8) K/uL RBC 4.63 (4.2-5.4) M/uL Hgb 14.7 (12.0-16.0) g/dL Hct 41.8 (37-47) % MCV 90.3 (80-100) fL MCH 31.7 (25-34) pg MCHC 35.2 (32-36) g/dL RDW Std Deviation 44.6 (36.4-46.3) fL RDW Coeff of Anu 13.6 (11.5-14.5) % Plt Count 117 L (130-400) K/uL MPV 10.4 (7.4-10.4) fL Immature Gran % (Auto) 0.3 % Neut % (Auto) 89.8 % Lymph % (Auto) 3.8 % Kenton % (Auto) 4.5 % Eos % (Auto) 1.3 % Baso % (Auto) 0.3 % Immature Gran # (Auto) 0.02 (0.00-0.02) K/uL Neut # (Auto) 6.79 H (1.4-6.5) K/uL Lymph # (Auto) 0.29 L (1.2-3.4) K/uL Kenton # (Auto) 0.34 (0.11-0.59) K/uL Eos # (Auto) 0.10 (0-0.5) K/uL Baso # (Auto) 0.02 (0-0.2) K/uL PT 13.0 H (9.0-12.0) Seconds INR 1.3 H (0.9-1.1) APTT 28.8 (21.0-31.0) Seconds PTT Ratio 1.1 Sodium (136-145) mmol/L Potassium (3.5-5.1) mmol/L Chloride (98-107) mmol/L Carbon Dioxide (21-32) mmol/L Anion Gap (3-11) BUN (7-18) mg/dl Creatinine (0.6-1.2) mg/dl Est Cr Clr Drug Dosing Est GFR ( Amer) Est GFR (Non-Af Amer) BUN/Creatinine Ratio (10-20) Glucose (70-99) mg/dl Lactate (0.4-2.0) mmol/L Calcium (8.5-10.1) mg/dl Magnesium (1.8-2.4) mg/dl Total Bilirubin (0.2-1) mg/dl AST (15-37) U/L ALT (12-78) U/L Alkaline Phosphatase (45-117) U/L Total Protein (6.4-8.2) gm/dl Albumin (3.4-5.0) gm/dl Globulin (2.5-4.0) gm/dl Albumin/Globulin Ratio (0.9-2) Influenza Type A (PCR) (Neg) Influenza Type B (PCR) (Neg)
[2019-11-30] MEDS ORDERED: INDOMETHACIN 50 MG SUPP PR SCH (10:15)
[2019-11-30] MEDS: PANTOprazole 40 MG TAB PO SCH (10:16)
[2019-11-30] MEDS: FLUDROCORTISONE ACETATE 0.1 MG TAB PO SCH (10:16)
[2019-11-30] MEDS: CHOLECALCIFEROL 1,000 UNITS 25 MCG TAB PO SCH (10:16)
[2019-11-30] MEDS: GABAPENTIN 100 MG CAP PO SCH ×3 (10:16→20:42)
[2019-11-30] MEDS: ESCITALOPRAM OXALATE 10 MG TAB PO SCH (10:16)
[2019-11-30] MEDS: [UNRECOGNIZED DRUG - OTHER] SCH ×3 (10:17→23:46)
[2019-11-30] MEDS: POTASSIUM CHLORIDE / WTR 10 MEQ/100 ML PLCT IV SCH ×2 (10:18→11:47)
[2019-11-30] MEDS ORDERED: PROPOFOL IV EMULSION 10 MG/ML 20 ML VIAL IV ONE (14:25)
[2019-11-30] MEDS ORDERED: fentaNYL citrate 100 MCG/2 ML VIAL ONE (14:25)
[2019-11-30] MEDS ORDERED: ONDANSETRON INJ 2 MG/ML 2 ML VIAL ONE (14:25)
[2019-11-30] MEDS ORDERED: LIDOCAINE HCL 2% 2 ML VIAL/AMP(20MG/ML) INFIL ONE (14:25)
--- NOTE | 2019-11-30 14:38 | History & Physical Bridge Note ---
Date of Service November 30, 2019 History & Physical Bridge Note I have examined the patient, reviewed the History & Physical and in the interval since the performance of the History & Physical I have noted the following changes of clinical significance: no changes noted
--- NOTE | 2019-11-30 14:51 | Hospitalist Progress Note ---
Date of Service November 30, 2019 Assessment & Plan (1) History of cholangitis: Per records reviewed patient last ERCP on 10/07/2019 in which she was diagnosed with acute cholangitis. Findings on ERCP consistent with 1 totally occluded stent from biliary tree, filling defect consistent with stone and sludge, remodeling of the previously noted biliary stricture, 2 biliary stents placed. She was to undergo repeat ERCP on 12/07/2019 to remove stents, but given worsening of symptoms prompted tomorrow. Of further significance initially dx with mass obstructing ERCP in 06/2019 in which initial stents were placed. Attempt to biopsy mass were unsuccessful. Evaluated [facility] and told not surgical candidate due to frail health. Appreciate GI input and recommendation Will have ERCP today and further recommendations are pending (2) Hyperbilirubinemia: (3) History of biliary stent insertion: This is an 89-year-old female who has significant PMH of CKD stage , GERD, depression, anxiety, hyperbilirubinemia, biliary obstruction status post stenting who presents to [facility] as a direct admission from [facility] due to concern for restenosis of biliary stricture and planned ERCP in a.m. (4) Biliary stricture: (5) Influenza A: Noted to have influenza A during this admission Started with oral Tamiflu Droplet precaution (6) Hypokalemia: K 2.8 give 40meq KCL x 1 now Krider 10meq x 2 Potassium remains low at 2.9 this morning We will up 2 more potassium rider x2 (7) Idiopathic hypotension: Continue Florinef (8) CKD (chronic kidney disease) stage 4, GFR 15-29 ml/min: baseline Cr 1.5-1.7 follows [facility] nephro Dr. Abbott Renal function has been improving (9) Hyperlipidemia: Hold statin for now Await LFTs (10) Acid reflux disease: Continue PPI (11) Depression with anxiety: Continue escitalopram (12) Peripheral neuropathy: Continue gabapentin (13) Leg pain, left: L knee pain add bengay cream no warmth or redness likely arthritic in nature APAP prn (14) Tobacco abuse: pt declines nicotine patch encourage smoking cessation (15) DVT prophylaxis: SCDS/TEDS Disposition: admit to PCU Follow up: PCP Lazara Plummer PA-C upon discharge Subjective 11/30/2019 Patient was seen and examined in telemetry unit Was admitted with abdominal discomfort generalized weakness from GI clinic Noted to have positive for flu She will have ERCP and discontinuation and/or placement of stent Review of Systems Review of Systems: All systems reviewed and are unremarkable except as noted below Constitutional: + chills, + fatigue, + weakness and + anorexia Gastrointestinal: + problem reported (Epigastric discomfort) Physical Exam Physical Exam: Lying in bed comfortably Constitutional: well developed, well nourished, + acute distress (Minimal acute distress due to epigastric discomfort), + ill appearing and + obese Eyes: PERRL, conjunctivae normal, anicteric sclerae ENMT: external ear and nose normal, oropharynx normal Neck: trachea midline, no thyromegaly Respiratory: normal respiratory effort and + respiratory distress (Minimal distress) Auscultation: + diminished lung sounds and + wheezes (Occasional wheezing) Cardiovascular: Rate/Rhythm: regular rate and regular rhythm Heart Sounds: no murmur Gastrointestinal (Abdomen): Inspection/Auscultation: abdomen normal to inspection and normal bowel sounds Percussion/Palpation: abdomen soft Musculoskeletal: No acute arthritis in any joints Neurologic: moves all extremities; no focal motor deficits Lymphatic: no cervical or axillary lymphadenopathy Results & Data Vital Signs (Past 12 Hours) Vital Signs Temp Pulse Pulse Resp BP BP Pulse Ox 11/30/19 12:07 36.9 C 86 20 180/90 H 96 11/30/19 10:00 94 H 11/30/19 07:45 36.8 C 78 18 168/81 H 176/76 H 95 11/30/19 05:47 166/86 H 11/30/19 04:32 36.8 C 76 22 171/93 H 96 Laboratory Results Short CBC 11/29/19 11/30/19 Range/Units 19:24 06:17 WBC 7.56 4.91 (4.8-10.8) K/uL Hgb 14.7 13.5 (12.0-16.0) g/dL Hct 41.8 38.7 (37-47) % Plt Count 117 L 110 L (130-400) K/uL BMP 11/29/19 11/30/19 19:24 06:17 Sodium 139 140 Potassium 2.8 L 2.9 L Chloride 106 109 H Carbon Dioxide 27 26 BUN 20 H 17 Creatinine 1.40 H 1.21 H Glucose 129 H 86 Calcium 8.9 8.4 L Liver Function 11/29/19 11/30/19 Range/Units 19:24 06:17 Total Bilirubin 5.3 H 3.5 H (0.2-1) mg/dl AST 77 H 54 H (15-37) U/L ALT 73 55 (12-78) U/L Alkaline Phosphatase 158 H 174 H (45-117) U/L Albumin 3.1 L 2.7 L (3.4-5.0) gm/dl Medications Administered Current Inpatient Medications Acetaminophen (Tylenol) 650 mg PO Q4H PRN PRN Reason: Pain or Fever Stop: 12/29/19 18:47 Last Admin: 11/30/19 00:02 Dose: 650 mg Documented by: Escitalopram Oxalate (Lexapro Tab) 10 mg PO DAILY [facility] Stop: 12/30/19 08:59 Last Admin: 11/30/19 10:16 Dose: Not Given Documented by: Fludrocortisone Acetate (Florinef) 0.1 mg PO DAILY [facility] Stop: 12/30/19 08:59 Last Admin: 11/30/19 10:16 Dose: Not Given Documented by: Gabapentin (Neurontin) 100 mg PO TID [facility] Stop: 12/29/19 20:59 Last Admin: 11/30/19 10:16 Dose: Not Given Documented by: Indomethacin (Indocin) 100 mg ID [email or web address] [facility] Stop: 11/30/19 23:59 Miscellaneous (Order Awaiting Action) 1 ea N/A QS [facility] Stop: 12/30/19 00:00 Last Admin: 11/30/19 10:17 Dose: Not Given Documented by: Ondansetron HCl (Zofran) 4 mg IV Q6H PRN PRN Reason: Nausea Stop: 12/29/19 18:47 Oseltamivir Phosphate (Tamiflu) 30 mg PO BID [facility]; Protocol Stop: 12/05/19 11:59 Pantoprazole Sodium (Protonix) 40 mg PO DAILY [facility] Stop: 12/30/19 08:59 Last Admin: 11/30/19 10:16 Dose: Not Given Documented by: Polyethylene Glycol (Miralax Powder Packet) 17 gm PO DAILY PRN PRN Reason: Constipation Stop: 12/29/19 18:47 Trolamine Salicylate (Myoflex) 1 appln EXT TID PRN PRN Reason: Pain Stop: 12/29/19 19:39 Last Admin: 11/29/19 21:23 Dose: 1 appln Documented by: Vitamin D (Vitamin D3) 2,000 units PO DAILY [facility] Stop: 12/30/19 08:59 Last Admin: 11/30/19 10:16 Dose: Not Given Documented by:
[2019-11-30] MEDS ORDERED: ROCURONIUM BROMIDE 10 MG/ML 5 ML VIAL ONE (14:58)
[2019-11-30] MEDS ORDERED: SUCCINYLCHOLINE 100MG/5ML SYR ONE (14:58)
--- NOTE | 2019-11-30 15:52 | Anesthesiology Consultation ---
Date of Service November 30, 2019 stg 4 ckd gerd biliary obstruction influenza a smoker Assessment & Plan (1) Encounter for pre-operative examination: Chart Review Chart Review: Acceptable Risk for Surgery and Patient NOT seen in Pre Admission Testing Consults Requested none ASA ASA3 Proposed Anesthesia Anesthesia Type: General Risk / Benefits Reviewed With: PT / POA / Parent / Guardian, Accepts Plan and Informed Consent Obtained History Surgery Operation Date: 11/30/19 10:35 Proposed Procedures p ERCP with Stent Exchange - Fabian Costa MD Operation Date: 11/30/19 13:25 Proposed Procedures p Endoscopic Retrograde Cholangiopancreatogram - Fabian Costa MD Height/Weight Height: 5 ft 4 in Weight: 71.4 kg Allergies Allergy/AdvReac Type Severity Reaction Status Date / Time cephalexin [From Keflex] Allergy POSSIBLE Verified 11/27/19 12:38 RASH aspirin AdvReac Unknown HX OF ULCER Verified 11/27/19 12:38 Medications Home Medications Medication Instructions Recorded Confirmed Last Taken clopidogrel 75 mg tablet 75 mg PO DAILY 08/02/19 11/29/19 Unknown gabapentin 100 mg capsule 100 mg PO TID #90 cap 08/14/19 11/29/19 Unknown melatonin 5 mg capsule 10 mg PO HS PRN #30 cap 08/14/19 11/29/19 Unknown atorvastatin 40 mg PO DAILY 11/29/19 11/29/19 Unknown cholecalciferol (vitamin D3) 2,000 unit PO DAILY 11/29/19 11/29/19 Unknown escitalopram oxalate 10 mg PO DAILY 11/29/19 11/29/19 Unknown fludrocortisone 0.1 mg PO DAILY 11/29/19 11/29/19 Unknown omeprazole 20 mg PO DAILY 11/29/19 11/29/19 Unknown ursodiol 500 mg PO BID 11/29/19 11/29/19 Unknown Active Medications Generic Name Dose Route Start Last Admin Trade Name Freq PRN Reason Stop Dose Admin Acetaminophen 650 mg 11/29/19 18:48 11/30/19 00:02 Tylenol PO 12/29/19 18:47 650 mg Q4H PRN Administration Pain or Fever Escitalopram Oxalate 10 mg 11/30/19 09:00 11/30/19 10:16 Lexapro Tab PO 12/30/19 08:59 Not Given DAILY ENDY Fludrocortisone Acetate 0.1 mg 11/30/19 09:00 11/30/19 10:16 Florinef PO 12/30/19 08:59 Not Given DAILY ENDY Gabapentin 100 mg 11/29/19 21:00 11/30/19 15:02 Neurontin PO 12/29/19 20:59 Not Given TID ENDY Miscellaneous 1 ea 11/30/19 00:00 11/30/19 10:17 Order Awaiting Action N/A 12/30/19 00:00 Not Given QS ENDY Pantoprazole Sodium 40 mg 11/30/19 09:00 11/30/19 10:16 Protonix PO 12/30/19 08:59 Not Given DAILY END[facility] Trolamine Salicylate 1 appln 11/29/19 19:40 11/29/19 21:23 Myoflex EXT 12/29/19 19:39 1 appln TID PRN Administration Pain Vitamin D 2,000 units 11/30/19 09:00 11/30/19 10:16 Vitamin D3 PO 12/30/19 08:59 Not Given DAILY ENDY NPO Date Last Intake of Fluids: 11/29/19 Time Last Intake of Fluids: 21:00 Date Last Intake of Solids: 11/29/19 Time Last Intake of Solids: 22:30 Past Medical History Medical History Acid reflux disease (Acute) Bilateral leg weakness (Acute) 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) Depression with anxiety (Acute) Dysphagia (Acute) Hyperlipidemia (Acute) Hypertension (Acute) Insomnia (Acute) Jaundice (Inactive) Low back pain (Acute) Memory impairment (Acute) Peripheral neuropathy (Acute) Postmenopausal osteoporosis (Acute) Secondary hyperparathyroidism (Acute) Urinary incontinence (Acute) Vitamin D deficiency (Acute) Exercise / Class Metabolic Activity II 4-5 Yardwork/Stairs/Walk up hill Past Family History Family History Sister Cancer Past Surgical History Surgical History History of ankle surgery repair ankle fx History of back surgery x 5 History of laparoscopic cholecystectomy S/P ERCP 08/16/19 S/P lumbar spinal fusion (Resolved) Past Anesthesia History No Hx of Anesthesia Complications and No Family Hx of Anesthesia Complications History of PONV No Hx of PONV and No Hx of Motion Sickness Social History Smoking Status: Current every day smoker tobacco type: cigarettes Smoking cigarettes per day: PACK AND HALF Do You Dip or Chew Tobacco: No Hx Alcohol Use: No Hx Substance Use: No substance use type: does not use Physical Exam Vital Signs Last Vital Signs Temp 36.9 C 11/30/19 15:27 Pulse 69 11/30/19 15:27 Resp 16 11/30/19 15:27 BP 188/88 H 11/30/19 15:27 Pulse Ox 98 11/30/19 15:27 ENMT Mouth: + dentures Thyromental Distance: > or= 3.5 Finger Breadths Mallampati Class: II Neck normal visual inspection Respiratory normal respiratory effort and + cough Auscultation: lungs clear to auscultation bilaterally Cardiovascular Rate/Rhythm: regular rate and regular rhythm Psychiatric Orientation: alert Testing Laboratory Results 11/30/19 06:17 11/30/19 06:17 PT 13.0 Seconds (9.0-12.0) H 11/29/19 19:24 INR 1.3 (0.9-1.1) H 11/29/19 19:24 APTT 28.8 Seconds (21.0-31.0) 11/29/19 19:24
[2019-11-30] MEDS ORDERED: CEFAZOLIN 1000MG 1,000 MG/7.5 ML SYR IV ONE (16:04)
[2019-11-30] MEDS ORDERED: CEFAZOLIN 250 MG/ML 1 GM VIAL ONE (16:22)
[2019-11-30] MEDS ORDERED: GLYCOPYRROLATE 0.2 MG/ML VIAL ONE (16:22)
[2019-11-30] MEDS: CIPROFLOXACIN 400 MG/200 ML BAG IV SCH ×2 (16:27→19:22)
--- NOTE | 2019-11-30 16:55 | Operative Report ---
Post Operative Report Pre & Post Diagnosis Operation Date: 11/30/19 10:35 Pre-Op Diagnosis: Jaundice Post-Op Diagnosis: Jaundice Operation Date: 11/30/19 13:25 <No data on this case meets the specified criteria> I identified the patient and participated in the time-out.: Yes Procedure Operation Date: 11/30/19 10:35 Actual Procedures p ERCP with Stent Exchange(Not Applicable) - Fabian Costa MD Operation Date: 11/30/19 13:25 <No data on this case meets the specified criteria> Surgeon Fabian Costa MD Adobe Flex Developer None Estimated Blood Loss 0 Findings See Below (Biliary stricture, Metal stent placed) Specimens None Description of Procedure ERCP I attest to the content of the Intraoperative Record and any orders documented therein. Any exceptions are noted below.
--- NOTE | 2019-11-30 17:12 | Fluoroscopy Report ---
[place] ERCP biliary ductal CLINICAL HISTORY: 89 years-old Female presenting with STENT. TECHNIQUE: Fluoroscopy was provided for endoscopic retrograde cholangiopancreatography. 12 fluoroscop ic image(s) recorded. COMPARISON: None. FINDINGS: Procedure: An endoscope projects over the descending duodenum. The lumbar fusion hardware noted. A mi crocatheter was advanced into the common bile duct to the level of the liver hilum. The bile ducts we re opacified with contrast. A focally dilated duct in the region of the left hepatic duct is evident with filling defects. There is also possible narrowing of the proximal common duct potentially near t he insertion of the cystic duct. The cystic duct remnant opacifies with contrast and is nondilated. V ariant biliary anatomy may be present with insertion of the cystic duct on the right posterior duct. Subsequently, a metallic stent was placed with decreased stenosis of the common bile duct. The stent was patent. Peritoneal spillage: No evidence of peritoneal spillage of contrast. Extrahepatic bile ducts: Focal narrowing of the extrahepatic bile duct in the proximal portion. Contr ast extends into the small bowel. Intrahepatic bile ducts: Focally dilated left hepatic duct with intraductal debris or calculi suspect ed. Dose area product (mGy.cm^2): 3.5411. Fluoroscopy time: 1 minute 13.8 seconds. Number or time of high level fluoroscopy (HLF), digital spot, or digital subtraction images: 0. IMPRESSION: ERCP for metallic stent placement across a common bile duct stenosis. Additional findings as above. C orrelation with cross-sectional imaging would be helpful. ACT 112: Negative or not required by law. Electronically signed by: Brent Longoria M.D. 11/30/2019 5:11 PM
[2019-11-30] MEDS ORDERED: ePHEDrine sulfate 50 MG/ML AMP IV PRN (17:27)
[2019-11-30] MEDS ORDERED: ONDANSETRON INJ 2 MG/ML 2 ML VIAL IV PRN (17:27)
[2019-11-30] MEDS ORDERED: fentaNYL citrate 100 MCG/2 ML VIAL IV PRN (17:27)
[2019-11-30] MEDS ORDERED: ATROPINE SULFATE 0.1 MG/ML 10ML SYR IV PRN (17:27)
[2019-11-30] MEDS ORDERED: LABETALOL HCL IV 5 MG/ML 20ML IV ONE (17:31)
[2019-11-30] MEDS: LABETALOL HCL IV 5 MG/ML 20ML IV PRN ×3 (17:31→18:38)
--- NOTE | 2019-11-30 17:37 | GI REPORT ---
Patient Name: Rajwinder Bowser Procedure Date: 11/30/2019 3:06 PM Date of : 1930 Admit Type: Inpatient Age: 89 Gender: Female Attending MD: Fabian Costa MD Procedure: ERCP Providers: Fabian Costa MD Referring MD: Dolly Cheek Md, Lazara Moss Pa-c Indications: For therapy of ascending cholangitis, Jaundice, Elevated liver enzymes, Stent change, Bile duct stricture Medicines: General Anesthesia, Cipro 400 mg IV Complications: No immediate complications. Estimated Blood Loss: Estimated blood loss: none. Procedure: Pre-Anesthesia Assessment: - Prior to the procedure, a History and Physical was performed, and patient medications, allergies and sensitivities were reviewed. The patient's tolerance of previous anesthesia was reviewed. - The risks and benefits of the procedure and the sedation options and risks were discussed with the patient. All questions were answered and informed consent was obtained. - Patient identification and proposed procedure were verified prior to the procedure by the physician and the nurse. The procedure was verified in the procedure room. - Pre-procedure physical examination revealed no contraindications to sedation. After obtaining informed consent, the scope was passed under direct vision. Throughout the procedure, the patient's blood pressure, pulse, and oxygen saturations were monitored continuously. The Scope was introduced through the mouth, and advanced to the duodenum and used to inject contrast into the bile duct. The ERCP was accomplished without difficulty. The patient tolerated the procedure well. Findings: A delivery man film of the abdomen was obtained. Surgical clips, consistent with a previous cholecystectomy, were seen in the area of the right upper quadrant of the abdomen. Two biliary stents were visible on the delivery man film. The esophagus was successfully intubated under direct vision. The scope was advanced to a normal major papilla in the descending duodenum without detailed examination of the pharynx, larynx and associated structures, and upper GI tract. The upper GI tract was grossly normal. A biliary sphincterotomy had been performed. The sphincterotomy appeared open. Two plastic biliary stents originating in the common bile duct were emerging from the major papilla. The stents were visibly occluded. Two stents were removed from the common bile duct using a snare. A 0.035 inch straight standard wire was passed into the biliary tree. The 8.5 mm balloon was passed over the guidewire and the bile duct was then deeply cannulated. Contrast was injected. I personally interpreted the bile duct images. Ductal flow of contrast was adequate. Image quality was adequate. Contrast extended to the main bile duct. The middle third of the main bile duct contained a single severe localized stenosis 20 mm in length. The biliary orifice was stenotic. This appeared benign. Bile duct orifice was successfully dilated with an 8 mm balloon dilator. The biliary tree was swept with an 8.5 mm balloon starting at the bifurcation. Sludge was swept from the duct. Debris was swept from the duct. The bile duct was explored endoscopically using direct visualization cholangioscopy. The XP ultrathin scope was advanced to the lower third of the main duct. Visibility with the scope was excellent. The middle third of the main bile duct contained stenoses that appeared fibrotic with no evidence of a mass to suggest cholangiocarcinoma. DDx include extrahepatic PSC, ischemic, autoimmune, etc. One 10 mm by 6 cm uncovered metal biliary stent was placed into the common bile duct. Bile flowed through the stent. The stent was in good position (transpapillary). Indomethacin 100 mg was given via suppository to decrease the risk of post-ERCP pancreatitis (PEP). PD was not cannulated nor injected with contrast. Impression: - Two visibly occluded stents removed from the common bile duct. - Benign biliary papillary stenosis, dilated with balloon. - A single severe localized biliary stricture was found in the middle third of the main bile duct. - One uncovered metal biliary stent was placed into the common bile duct. Recommendation: - [facility]. - PO Ciprofloxacin 500 mg BID for 4 days. - Continue UDCA for now. - Monitor LFTs. - Resume regular diet. Fabian Costa MD 11/30/2019 5:36:08 PM This report has been signed electronically. Note Initiated On: 11/30/2019 3:06 PM Number of Addenda: 0 I attest to the content of the Intraoperative Record and orders documented therein, exceptions below {[id number]}
[2019-11-30] MEDS: OSELTAMIVIR PHOSPHATE SUSP 30 MG/5 ML UDP PO SCH ×2 (18:06→20:42)
[2019-11-30] MEDS ORDERED: MEPERIDINE HCL 25 MG/ML CARP IV PRN (18:09)
[2019-11-30] MEDS ORDERED: MEPERIDINE HCL 25 MG/ML CARP ONE (18:12)
--- NOTE | 2019-11-30 19:13 | Anesthesiology Progress Note ---
Date of Service November 30, 2019 Anesthesia Post Procedure Vital Signs Vital Signs: Temp Pulse Pulse Pulse Resp BP BP 11/30/19 18:50 37.3 C 95 H 23 176/92 H 11/30/19 18:40 92 H 23 170/86 H 11/30/19 18:30 96 H 24 178/99 H 11/30/19 18:20 36.7 C 96 H 24 202/109 H 11/30/19 18:10 120 H 16 204/119 H 11/30/19 17:55 37.1 C 109 H 16 190/109 H 11/30/19 17:45 37.1 C 85 16 182/97 H 11/30/19 17:35 89 16 173/86 H 11/30/19 17:25 99 H 16 190/106 H 11/30/19 17:15 104 H 25 H 192/109 H 11/30/19 17:08 36.4 C L 114 H 21 141/118 H 11/30/19 15:27 36.9 C 69 16 188/88 H 11/30/19 15:00 83 11/30/19 12:07 36.9 C 86 20 180/90 H 11/30/19 10:00 94 H 11/30/19 07:45 36.8 C 78 18 168/81 H 176/76 H 11/30/19 05:47 166/86 H 11/30/19 04:32 36.8 C 76 22 171/93 H 11/30/19 01:00 88 146/87 H 11/29/19 23:24 37.5 C 91 H 26 H 183/77 H 11/29/19 22:54 92 H 11/29/19 22:20 89 11/29/19 22:17 90 11/29/19 19:22 107 H Pulse Ox 11/30/19 18:50 96 11/30/19 18:40 99 11/30/19 18:30 99 11/30/19 18:20 99 11/30/19 18:10 98 11/30/19 17:55 98 11/30/19 17:45 94 11/30/19 17:35 95 11/30/19 17:25 100 11/30/19 17:15 100 11/30/19 17:08 98 11/30/19 15:27 98 11/30/19 15:00 11/30/19 12:07 96 11/30/19 10:00 11/30/19 07:45 95 11/30/19 05:47 11/30/19 04:32 96 11/30/19 01:00 11/29/19 23:24 96 11/29/19 22:54 11/29/19 22:20 11/29/19 22:17 11/29/19 19:22 Transfer of Care Handoff Completed per policy Notes Mental Status: alert / awake / arousable and participated in evaluation Patient Amnestic to Procedure: Yes Nausea / Vomiting: adequately controlled Pain: adequately controlled Airway Patency, RR, SpO2: stable & adequate BP & HR: stable & adequate Hydration State: stable & adequate Anesthetic Complications: no major complications apparent and Pt Satisfied with anesthetic care
[2019-12-01 07:07] LABS: Albumin Globulin Ratio 0.8 (0.9-2); Albumin Level 2.7 gm/dl (3.4-5.0); BUN Creatinine Ratio 17.8 (10-20); Bilirubin Direct 1.7 mg/dl (0-0.2); Bilirubin,Total 2.1 mg/dl (0.2-1); Calcium 8.6 mg/dl (8.5-10.1); Creatinine Clr Calc Pharmacy 29.3 ml/min; Est GFR (African American) 42.3; Est GFR (Non-African American) 36.5; Globulin 3.4 gm/dl (2.5-4.0); Potassium 3.4 mmol/L (3.5-5.1); Total Protein 6.1 gm/dl (6.4-8.2)
[2019-12-01] MEDS: CHOLECALCIFEROL 1,000 UNITS 25 MCG TAB PO SCH (07:45)
[2019-12-01] MEDS: [UNRECOGNIZED DRUG - OTHER] SCH (07:45)
[2019-12-01] MEDS: PANTOprazole 40 MG TAB PO SCH (07:46)
[2019-12-01] MEDS: FLUDROCORTISONE ACETATE 0.1 MG TAB PO SCH (07:46)
[2019-12-01] MEDS: GABAPENTIN 100 MG CAP PO SCH ×2 (07:47→13:59)
[2019-12-01] MEDS: ESCITALOPRAM OXALATE 10 MG TAB PO SCH (07:47)
--- NOTE | 2019-12-01 08:08 | Anesthesiology Progress Note ---
Date of Service December 01, 2019 Anesthesia Post Procedure Vital Signs Vital Signs: Temp Pulse Pulse Pulse Resp BP Pulse Ox 12/01/19 07:30 80 12/01/19 07:08 36.6 C 71 17 129/74 96 12/01/19 03:59 36.6 C 76 18 145/77 H 97 11/30/19 23:46 36.5 C 93 H 19 145/80 H 95 11/30/19 22:49 36.6 C 96 H 18 157/82 H 94 11/30/19 22:33 112 H 20 171/82 H 97 11/30/19 21:58 99 H 20 145/76 H 11/30/19 21:33 36.8 C 105 H 20 159/78 H 97 11/30/19 20:46 36.7 C 96 H 18 138/77 90 11/30/19 20:18 37.1 C 98 H 18 134/78 91 11/30/19 20:03 99 H 18 124/74 90 11/30/19 19:46 36.9 C 99 H 20 157/89 H 89 L 11/30/19 19:12 37.1 C 109 H 20 187/84 H 92 11/30/19 18:50 37.3 C 95 H 23 176/92 H 96 11/30/19 18:40 92 H 23 170/86 H 99 11/30/19 18:30 96 H 24 178/99 H 99 11/30/19 18:20 36.7 C 96 H 24 202/109 H 99 11/30/19 18:10 120 H 16 204/119 H 98 11/30/19 17:55 37.1 C 109 H 16 190/109 H 98 11/30/19 17:45 37.1 C 85 16 182/97 H 94 11/30/19 17:35 89 16 173/86 H 95 11/30/19 17:25 99 H 16 190/106 H 100 11/30/19 17:15 104 H 25 H 192/109 H 100 11/30/19 17:08 36.4 C L 114 H 21 141/118 H 98 11/30/19 15:27 36.9 C 69 16 188/88 H 98 11/30/19 15:00 83 11/30/19 12:07 36.9 C 86 20 180/90 H 96 11/30/19 10:00 94 H Notes Mental Status: alert / awake / arousable and participated in evaluation Patient Amnestic to Procedure: Yes Nausea / Vomiting: adequately controlled Pain: adequately controlled Airway Patency, RR, SpO2: stable & adequate BP & HR: stable & adequate Hydration State: stable & adequate Anesthetic Complications: no major complications apparent and Pt Satisfied with anesthetic care
[2019-12-01] MEDS ORDERED: POTASSIUM CHLORIDE 20 MEQ TABCR PO SCH (08:45)
--- NOTE | 2019-12-01 08:53 | Gastroenterology Progress Note ---
Date of Service December 01, 2019 Assessment & Plan (1) Biliary stricture: 89 year old female s/p ERCP w/ stent exchange clinically feeling well w/ downtrending LFTs Two visibly occluded stents removed from the common bile duct. Benign biliary papillary stenosis, dilated with balloon. A single severe localized biliary stricture was found in the middle third of the main bile duct. One uncovered metal biliary stent was placed into the common bile duct. PO Ciprofloxacin 500 mg BID for 4 days. Monitor LFTs. Resume regular diet. Will sign off. Thank you for allowing us to participate in the care of this patient. Please call with any acute changes, questions or concerns. Please see addendum below with additional recommendation from my supervising physician. Supervising Physician Co-Signing Physician Notes I have discussed the patient's management with Maricel. Please refer to the nurse practitioner's note for the documented findings and plan of care. LFTs trending down. Subjective Pt was seen and evaluated, chart reviewed. S/P ERCP w/ exchange of biliary stent Feeling well No abdominal pain No nausea, vomiting No fever, chills, CP, SOB Review of Systems Constitutional: no fever, no chills, no fatigue and no weakness Respiratory: no cough, no chest congestion, no dyspnea and no dyspnea on exertion Cardiovascular: no chest pain, no radiating jaw, neck or arm pain, no dyspnea and no dyspnea on exertion Gastrointestinal: no abdominal pain, no nausea, no coffee ground emesis, no hematemesis, no blood in stools and no melena Physical Exam Constitutional: WD/WN, vitals as above Neck: trachea midline Respiratory: normal respiratory effort, lungs clear to auscultation Cardiovascular: RRR, no murmur, no edema Gastrointestinal (Abdomen): normal bowel sounds, soft, nontender, no hepatosplenomegaly Results & Data Vital Signs (Past 12 Hours) Vital Signs Temp Pulse Pulse Pulse Resp BP Pulse Ox 12/01/19 07:30 80 12/01/19 07:08 36.6 C 71 17 129/74 96 12/01/19 03:59 36.6 C 76 18 145/77 H 97 11/30/19 23:46 36.5 C 93 H 19 145/80 H 95 11/30/19 22:49 36.6 C 96 H 18 157/82 H 94 11/30/19 22:33 112 H 20 171/82 H 97 01/23/20 21:58 99 H 20 145/76 H 11/30/19 21:33 36.8 C 105 H 20 159/78 H 97 Laboratory Results 12/01/19 11/30/19 Range/Units 06:15 06:17 Sodium 138 (136-145) mmol/L Potassium 3.4 L D (3.5-5.1) mmol/L Chloride 105 (98-107) mmol/L Carbon Dioxide 27 (21-32) mmol/L Anion Gap 6.0 (3-11) BUN 23 H (7-18) mg/dl Creatinine 1.31 H (0.6-1.2) mg/dl Est Cr Clr Drug Dosing 29.3 ml/min Est GFR ( Amer) 42.3 Est GFR (Non-Af Amer) 36.5 BUN/Creatinine Ratio 17.8 (10-20) Glucose 135 H (70-99) mg/dl Calcium 8.6 (8.5-10.1) mg/dl Magnesium 2.1 (1.8-2.4) mg/dl Total Bilirubin 2.1 H (0.2-1) mg/dl Direct Bilirubin 1.7 H (0-0.2) mg/dl AST 41 H (15-37) U/L ALT 43 (12-78) U/L Alkaline Phosphatase 270 H (45-117) U/L Total Protein 6.1 L (6.4-8.2) gm/dl Albumin 2.7 L (3.4-5.0) gm/dl Globulin 3.4 (2.5-4.0) gm/dl Albumin/Globulin Ratio 0.8 L (0.9-2)
[2019-12-01] MEDS ORDERED: CIPROFLOXACIN 500 MG TAB PO SCH (09:00)
[2019-12-01] MEDS: OSELTAMIVIR PHOSPHATE SUSP 30 MG/5 ML UDP PO SCH (09:53)
--- NOTE | 2019-12-01 14:04 | Hospitalist Progress Note ---
Date of Service December 01, 2019 Assessment & Plan (1) History of cholangitis: Per records reviewed patient last ERCP on 10/07/2019 in which she was diagnosed with acute cholangitis. Findings on ERCP consistent with 1 totally occluded stent from biliary tree, filling defect consistent with stone and sludge, remodeling of the previously noted biliary stricture, 2 biliary stents placed. She was to undergo repeat ERCP on 12/07/2019 to remove stents, but given worsening of symptoms prompted tomorrow. Of further significance initially dx with mass obstructing ERCP in 06/2019 in which initial stents were placed. Attempt to biopsy mass were unsuccessful. Evaluated [facility] and told not surgical candidate due to frail health. Appreciate GI input and recommendation S/P ERCP w/ stent exchange with uncovered metal biliary stent into the common bile duct on 11/30/2019 Has been feeling a lot better without any abdominal discomfort Tolerating regular diet We will discharge home this afternoon (2) Hyperbilirubinemia: (3) History of biliary stent insertion: This is an 89-year-old female who has significant PMH of CKD stage , GERD, depression, anxiety, hyperbilirubinemia, biliary obstruction status post stenting who presents to [facility] as a direct admission from [facility] due to concern for restenosis of biliary stricture and planned ERCP in a.m. (4) Biliary stricture: (5) Influenza A: Noted to have influenza A during this admission Started with oral Tamiflu Droplet precaution We will continue Tamiflu for a total of 5 days (6) Hypokalemia: K 2.8 give 40meq KCL x 1 now Krider 10meq x 2 Potassium remains low at 2.9 this morning We will up 2 more potassium rider x2 Potassium is normalized (7) Idiopathic hypotension: Continue Florinef (8) CKD (chronic kidney disease) stage 4, GFR 15-29 ml/min: baseline Cr 1.5-1.7 follows [facility] nephro Dr. Abbott Renal function has been improving (9) Hyperlipidemia: Hold statin for now Await LFTs (10) Acid reflux disease: Continue PPI (11) Depression with anxiety: Continue escitalopram (12) Peripheral neuropathy: Continue gabapentin (13) Leg pain, left: L knee pain add bengay cream no warmth or redness likely arthritic in nature APAP prn (14) Tobacco abuse: pt declines nicotine patch encourage smoking cessation (15) DVT prophylaxis: SCDS/TEDS Disposition: admit to PCU Follow up: PCP Lazara Plummer PA-C upon discharge Will discharge home today Subjective 11/30/2019 Patient was seen and examined in telemetry unit Was admitted with abdominal discomfort generalized weakness from GI clinic Noted to have positive for flu She will have ERCP and discontinuation and/or placement of stent 12/01/2019 Patient is seen and examined in telemetry unit She is a status post ERCP and and numerous stent placement in the biliary tree Denies any abdominal discomfort and/or pain Respiratory symptoms are much better Review of Systems Review of Systems: All systems reviewed and are unremarkable except as noted below Constitutional: + weakness and + anorexia Gastrointestinal: no abdominal pain Physical Exam Physical Exam: Lying in bed comfortably Constitutional: well developed, well nourished and + obese; no acute distress Eyes: PERRL, conjunctivae normal, anicteric sclerae ENMT: external ear and nose normal, oropharynx normal Neck: trachea midline, no thyromegaly Respiratory: normal respiratory effort and + cough (Almost resolved); no respiratory distress Auscultation: + diminished lung sounds Cardiovascular: Rate/Rhythm: regular rate and regular rhythm Heart Sounds: no murmur Gastrointestinal (Abdomen): Inspection/Auscultation: abdomen normal to inspection and normal bowel sounds Percussion/Palpation: abdomen soft Neurologic: moves all extremities; no focal motor deficits Lymphatic: no cervical or axillary lymphadenopathy Results & Data Vital Signs (Past 12 Hours) Vital Signs Temp Pulse Pulse Pulse Resp BP Pulse Ox 12/01/19 11:04 36.5 C 73 18 155/83 H 94 12/01/19 07:30 80 12/01/19 07:08 36.6 C 71 17 129/74 96 12/01/19 03:59 36.6 C 76 18 145/77 H 97 Laboratory Results BMP 12/01/19 06:15 Sodium 138 Potassium 3.4 L D Chloride 105 Carbon Dioxide 27 BUN 23 H Creatinine 1.31 H Glucose 135 H Calcium 8.6 Liver Function 12/01/19 Range/Units 06:15 Total Bilirubin 2.1 H (0.2-1) mg/dl Direct Bilirubin 1.7 H (0-0.2) mg/dl AST 41 H (15-37) U/L ALT 43 (12-78) U/L Alkaline Phosphatase 270 H (45-117) U/L Albumin 2.7 L (3.4-5.0) gm/dl Medications Administered Current Inpatient Medications Acetaminophen (Tylenol) 650 mg PO Q4H PRN PRN Reason: Pain or Fever Stop: 12/29/19 18:47 Last Admin: 11/30/19 00:02 Dose: 650 mg Documented by: Ciprofloxacin (Cipro) 500 mg PO BID [facility] Stop: 12/11/19 08:59 Last Admin: 12/01/19 07:48 Dose: 500 mg Documented by: Escitalopram Oxalate (Lexapro Tab) 10 mg PO DAILY [facility] Stop: 12/30/19 08:59 Last Admin: 12/01/19 07:47 Dose: 10 mg Documented by: Fludrocortisone Acetate (Florinef) 0.1 mg PO DAILY [facility] Stop: 12/30/19 08:59 Last Admin: 12/01/19 07:46 Dose: 0.1 mg Documented by: Gabapentin (Neurontin) 100 mg PO TID [facility] Stop: 12/29/19 20:59 Last Admin: 12/01/19 13:59 Dose: 100 mg Documented by: Miscellaneous (Order Awaiting Action) 1 ea N/A QS [facility] Stop: 12/30/19 00:00 Last Admin: 12/01/19 07:45 Dose: Not Given Documented by: Ondansetron HCl (Zofran) 4 mg IV Q6H PRN PRN Reason: Nausea Stop: 12/29/19 18:47 Oseltamivir Phosphate (Tamiflu) 30 mg PO BID [facility]; Protocol Stop: 12/05/19 11:59 Last Admin: 12/01/19 09:53 Dose: 30 mg Documented by: Pantoprazole Sodium (Protonix) 40 mg PO DAILY [facility] Stop: 12/30/19 08:59 Last Admin: 12/01/19 07:46 Dose: 40 mg Documented by: Polyethylene Glycol (Miralax Powder Packet) 17 gm PO DAILY PRN PRN Reason: Constipation Stop: 12/29/19 18:47 Potassium Chloride (Klor-Con M20) 40 meq PO NOW [facility] Stop: 12/31/19 10:15 Last Admin: 12/01/19 09:52 Dose: 40 meq Documented by: Trolamine Salicylate (Myoflex) 1 appln EXT TID PRN PRN Reason: Pain Stop: 12/29/19 19:39 Last Admin: 11/29/19 21:23 Dose: 1 appln Documented by: Vitamin D (Vitamin D3) 2,000 units PO DAILY [facility] Stop: 12/30/19 08:59 Last Admin: 12/01/19 07:45 Dose: 2,000 units Documented by:
[2019-12-02] MEDS ORDERED: CIPROFLOXACIN 500 MG TAB PO SCH (02:00)
--- NOTE | 2019-12-02 08:27 | Discharge Summary ---
Date of Service December 02, 2019 Admission HPI Per Admitting Provider This is an 89-year-old female who has significant PMH of CKD stage IIIb-, GERD, depression, anxiety, hyperbilirubinemia, biliary obstruction status post stenting who presents to [facility] as a direct admission from [facility] due to concern for restenosis of biliary stricture and planned ERCP in a.m. Daughter was at bedside. Yesterday she developed abdominal pain, left upper quadrant and right upper quadrant, constant that resolved on own. Today she was nauseous, weak and daughter felt like she was starting to turn, "yellow," therefore, she called Dr. Costa. Patient was planned to have ERCP with stent exchange at end of month, but given current complaints and concerns he wanted patient directly admitted for ERCP in a.m. Currently she is lying in bed and complains of left knee pain" jumping," that is been off and on for years. She no longer has abdominal pain or nausea. She does elicit to a dry cough that is started today. She denies any fever, chills, sweats, headach e, lightheadedness, dizziness, chest pain, shortness of breath, FLOREZ, palpitations, emesis, abdominal pain, diarrhea, change in bowel or urinary habits. She is currently a 1 pack/day smoker. She lives alone. Overall appetite has been diminished and 5lb weight loss in past month has been noted. Admission Exam Per Admitting Provider General: Elderly woman in no distress Eyes: PERRL, conjunctivae normal, not pale, + icteric sclerae, EOM intact bilaterally ENMT: External ear and nose normal, oropharynx normal Neck: Normal visual inspection, no tracheal deviation, no swelling noted Respiratory: Normal respiratory effort, no respiratory distress, lungs clear to auscultation, no crackles and no wheezes Cardiovascular: Pulse is RRR. S1 S2 no pedal edema Chest (Breasts): Chest: normal inspection of chest Gastrointestinal (Abdomen): Abdomen is not distended, soft, non-tender to palpation, no guarding, no palpable hepatosplenomegaly, normal bowel sounds Musculoskeletal: No cyanosis or clubbing, all extremities motor strength 5/5, no tenderness on palpation of knees, no differential warmth Genitourinary: No CVA tenderness Skin: No rash noted on gross inspection, No ulcers noted Neurologic: Alert and oriented x 3, No focal weakness, sensation grossly intact Psychiatric: Pleasant, euthymic affect, normal judgement Principal Diagnosis 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, status post dilation and stent exchange with uncovered metal biliary stent into the common bile duct, influenza A, chronic kidney disease, peripheral neuropathy Discharge Exam Constitutional well developed, well nourished and + obese; no acute distress Eyes PERRL, conjunctivae normal, anicteric sclerae ENMT external ear and nose normal, oropharynx normal Neck trachea midline, no thyromegaly Respiratory normal respiratory effort and + cough (Almost resolved); no respiratory distress Auscultation: + diminished lung sounds Cardiovascular Rate/Rhythm: regular rate and regular rhythm Heart Sounds: no murmur Gastrointestinal (Abdomen) Inspection/Auscultation: abdomen normal to inspection and normal bowel sounds Percussion/Palpation: abdomen soft Neurologic moves all extremities; no focal motor deficits Lymphatic no cervical or axillary lymphadenopathy Discharge Data Allergies Allergy/AdvReac Type Severity Reaction Status Date / Time cephalexin [From Keflex] Allergy POSSIBLE Verified 11/27/19 12:38 RASH aspirin AdvReac Unknown HX OF ULCER Verified 11/27/19 12:38 Consultations 11/29/19 18:48 Consult Gastroenterology Routine 11/29/19 18:52 Consult Case Management - Discharge Planning Routine Procedures Performed Operation Date: 11/30/19 10:35 Actual Procedures p ERCP with Stent Exchange(Not Applicable) - Fabian Costa MD Operation Date: 11/30/19 13:25 <No data on this case meets the specified criteria> Ordered Studies 11/30/19 10:07 FL fluoroscopy <1hr Routine 11/30/19 14:45 FL ERCP biliary ductal Routine Hospital Course (1) History of cholangitis: Per records reviewed patient last ERCP on 10/07/2019 in which she was diagnosed with acute cholangitis. Findings on ERCP consistent with 1 totally occluded stent from biliary tree, filling defect consistent with stone and sludge, remodeling of the previously noted biliary stricture, 2 biliary stents placed. She was to undergo repeat ERCP on 12/07/2019 to remove stents, but given worsening of symptoms prompted tomorrow. Of further significance initially dx with mass obstructing ERCP in 06/2019 in which initial stents were placed. Attempt to biopsy mass were unsuccessful. Evaluated [facility] and told not surgical candidate due to frail health. Appreciate GI input and recommendation S/P ERCP w/ stent exchange with uncovered metal biliary stent into the common bile duct on 11/30/2019 Has been feeling a lot better without any abdominal discomfort Tolerating regular diet We will discharge home this afternoon (2) Hyperbilirubinemia: (3) History of biliary stent insertion: This is an 89-year-old female who has significant PMH of CKD stage , GERD, depression, anxiety, hyperbilirubinemia, biliary obstruction status post stenting who presents to [facility] as a direct admission from [facility] due to concern for restenosis of biliary stricture and planned ERCP in a.m. (4) Biliary stricture: (5) Influenza A: Noted to have influenza A during this admission Started with oral Tamiflu Droplet precaution We will continue Tamiflu for a total of 5 days (6) Hypokalemia: K 2.8 give 40meq KCL x 1 now Krider 10meq x 2 Potassium remains low at 2.9 this morning We will up 2 more potassium rider x2 Potassium is normalized (7) Idiopathic hypotension: Continue Florinef (8) CKD (chronic kidney disease) stage 4, GFR 15-29 ml/min: baseline Cr 1.5-1.7 [place] [facility] [place] Abbott Renal function has been improving (9) Hyperlipidemia: Hold statin for now Await LFTs (10) Acid reflux disease: Continue PPI (11) Depression with anxiety: Continue escitalopram (12) Peripheral neuropathy: Continue gabapentin (13) Leg pain, left: L knee pain add bengay cream no warmth or redness likely arthritic in nature APAP prn (14) Tobacco abuse: pt declines nicotine patch encourage smoking cessation (15) DVT prophylaxis: SCDS/TEDS Disposition: admit to PCU Follow up: PCP Lazara Plummer PA-C upon discharge Will discharge home today Total Time Total Time Spent Total Time Spent (In Minutes): 35 minutes Total Time Includes: Examination of the Patient, Discharge Planning, Medication Reconciliation and Communication With Other Providers Discharge Plan Discharge Items Patient Disposition: Home - Self-Care Reason For Visit: BILIARY STRICTURE Discharge Diagnosis: 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, status post dilation and stent exchange with uncovered metal biliary stent into the common bile duct, influenza A, chronic kidney disease, peripheral neuropathy Condition on Discharge: Fair Activity: Resume your previous activity Non-emergency contact: Primary Care Provider Call non-emergency contact if: you have any medication questions and your symptoms worsen Follow-up/Referrals: Lazara Plummer PA-C [Primary Care Provider] - 12/04/19 1:45 pm (Keep your usual appointment with your clinical nursing professor) Diet: Heart Healthy Addtl Attending Provider Instructions: Please take precaution to avoid fall Protect yourself during coughing to prevent infection Finish the course of antibiotic Pending Studies at Discharge: No Stand-Alone Forms: My [facility], Smoking Cessation Medications and DC Order Prescriptions: New oseltamivir [Tamiflu] 6 mg/mL Suspension For Reconstitution 5 ml PO BID 3 Days Qty: 30 RF: 0 ciprofloxacin HCl 500 mg Tablet 500 mg PO Q18H 5 Days Qty: 4 RF: 0 Continued melatonin 5 mg capsule 10 mg PO HS PRN (Reason: sleep) Qty: 30 RF: 0 gabapentin 100 mg capsule 100 mg PO TID Qty: 90 RF: 0 clopidogrel [Plavix] 75 mg tablet 75 mg PO DAILY RF: 0 escitalopram oxalate 10 mg tablet 10 mg PO DAILY RF: 0 atorvastatin 40 mg tablet 40 mg PO DAILY RF: 0 fludrocortisone 0.1 mg tablet 0.1 mg PO DAILY RF: 0 ursodiol 500 mg tablet 500 mg PO BID RF: 0 cholecalciferol (vitamin D3) 2,000 unit Tablet 2,000 unit PO DAILY RF: 0 omeprazole 20 mg Capsule,Delayed Release(Dr/Ec) 20 mg PO DAILY RF: 0 Discharge Orders: Discharge Order (Routine); Ordered 12/01/19 Ordered By: Yoselyn Brunson Admission Data Admit Date/Time: 11/29/19 18:48 Attending Provider: Yoselyn Brunson Admit Provider: Dolly Cheek I. Primary Care Provider: Lazara Plummer Other Providers: Dolly Cheek I. ; Fabian Costa Other Interventions: Discharge Summary Assessment (RN) Last Done: 12/01/19 14:40 DC Date/Time DO NOT enter until pt leaves facility: 12/01/19 15:55
== END 2019-12-01 15:55 | disposition home or self-care (01) | DRG 919 ==
LOC: SUATTDRO 18:48 → 2S 18:48